=== PATIENT | male | born 1955 | race Caucasian/White ===

== ENCOUNTER 2018-02-25 08:15 | Emergency (ER) | payer OTHER, SELFPAY ==
[2018-02-25 08:16] VITALS: BP 128/77; PULSE 71; RESP 18; TEMP 37; O2SAT 97; BMI 24.3
--- NOTE | 2018-02-25 08:48 | RAD_ITS ---
STUDY: X-RAY - RIGHT HAND, ATTENTION . FINGER REASON FOR EXAM: Male, 62 years old. Crush injury. TECHNIQUE: 3 view(s) of the finger were obtained. COMPARISON: None. FINDINGS: Normal metacarpal head. Normal metacarpophalangeal joint. Normal proximal phalanx. Normal middle phalanx. Normal distal phalanx. Normal proximal interphalangeal joint. Normal distal interphalangeal joint. Soft tissue laceration overlying the distal phalanx of the index finger. A tiny radiopacity is seen within the soft tissues overlying the tuft of the distal pharynx. This most likely represents a tiny radiopaque foreign body. RAD/Finger(s) Min 2 Views IMPRESSION: Soft tissue laceration overlying the distal phalanx of the third digit with a tiny radiopaque foreign body. Electronically Signed: Leo Staples MD at 9:51 EST Tel [phone], Service support ,
--- NOTE | 2018-02-25 08:48 | RAD_ITS ---
STUDY: X-RAY - LEFT HAND, ATTENTION INDEX FINGER REASON FOR EXAM: Male, 62 years old. Crush injury to the index finger. TECHNIQUE: view(s) of the finger were obtained. COMPARISON: None. FINDINGS: Normal metacarpal head. Normal metacarpophalangeal joint. Normal proximal phalanx. Normal middle phalanx. Normal distal phalanx. Normal proximal interphalangeal joint. Findings suggest lobar degenerative spurring at the distal interphalangeal joint. Soft tissue laceration overlying the distal phalanx. RAD/Finger(s) Min 2 Views IMPRESSION: Soft tissue laceration overlying the distal phalanx. No radiopaque foreign body is seen. Electronically Signed: Leo Staples MD at 9:50 EST Tel [phone], Service support ,
[2018-02-25] MEDS: Diphth,Pertuss(Acell),Tet Vac 0.5 ML Vial IM (08:57)
[2018-02-25] MEDS: Bupivacaine Mpf 0.5% 30 ML VIAL INFILT (08:59)
--- NOTE | 2018-02-25 09:20 | ED.VISSUMM ---
- ER Visit Summary Date of Service: 02/25/18 Chief Complaint: Laceration History of Present Illness: The patient is a 62 M who reports that he was working with small piece of metal in a drill press. He brought depressed around and crushed his left index and right middle fingers. Reports his left index pain is 6 out of 10 severity. His right middle finger is 10 out of 10 in severity. Is worsened by movement. He describes the pain as throbbing. He is right-hand dominant. He is unsure when his last tetanus shot was. Physical Examination: Vitals: Stable. Afebrile. General: Well-nourished and well-developed. Head: Normocephalic atraumatic. Neck: Supple, no lymphadenopathy. No JVD. Nontender. Cardiovascular: Regular rate and rhythm. No murmurs. Respiratory: No respiratory distress. Clear to auscultation bilaterally. Abdominal: Soft, nontender, nondistended, normal bowel sounds. No guarding, rebound, or peritoneal signs. Back: Nontender. Extremities: Left index finger has a 2 cm flap laceration that is through the dermis and has connective tissue present underneath this. It does appear viable. Is not dusky. Right middle finger shows exposed connective tissue without exposed bone. There is no covering epidermis. The nail was avulsed.. Skin: Normal color, no rash. Neurologic: Alert and oriented ?3. Cranial nerves II through XII are intact. Normal strength and sensation. Psych: Normal affect. Test Results: Clinical Impression(s) from Imaging Studies Finger X-Ray 02/25/18 08:48 IMPRESSION: Soft tissue laceration overlying the distal phalanx of the third digit with a tiny radiopaque foreign body. Electronically Signed: Leo Staples MD at 9:51 EST Tel [phone], Service support , Finger X-Ray 02/25/18 08:48 IMPRESSION: Soft tissue laceration overlying the distal phalanx. No radiopaque foreign body is seen. Electronically Signed: Leo Staples MD at 9:50 EST Tel [phone], Service support , Emergency Department Course and Treatment: Patient had the wound on his left index finger repaired. He tolerated this well. He did have a digital block performed to each of the fingers that was involved. The right middle finger was cleansed and a small piece of metal was removed. It was copiously irrigated with normal saline. A dressing was then placed. Treatment Plan: Patient was discussed with Dr. Connor who has seen pictures of the wound and of the x-ray. He has the patient have a dressing placed and he will see him in the office in 3 days and discussed treatment options with him. Patient will be discharged on Keflex and given a first dose in the emergency department. He also be given Winton and naproxen for pain. Return to the emergency department for any worsening symptoms. Disposition: To home in improved and stable condition. Impression: 1. Laceration left index finger, 2 cm, repaired. 2. Partial amputation right middle fingertip. Procedure note: Wound was cleansed with chlorhexidine soap. Anesthetized with a digital block with bupivacaine without epinephrine. Copiously irrigated with normal saline. Wound was explored there is no foreign material present. It was closed with 5 simple interrupted 4-0 ethilon sutures. The patient tolerated it well. This note was generated with [employer] dictation software. It may contain incorrect words, spelling, and punctuation that were not noted in review of the chart prior to signing ED Disposition - Plan for ED Patient: Disposition: Home or Assisted Living Chief Complaint: Laceration Instructions: ED Laceration Amputation Finger Tip Open Tx Prescriptions: Hydrocodone Bitart/Apap 5-325 [Winton 5MG-325MG] 1 tablet PO Q4H PRN PRN 2 Days #10 tablet PRN Reason: Pain Cephalexin [Keflex] 500 mg PO Q6 #40 capsule Naproxen [Naprosyn] 500 mg PO BID #14 tablet Referrals: [facility] [GROUP OF PHYSICIANS] - Pepe Connor MD [STAFF PHYSICIAN] - 02/28/18
--- NOTE | 2018-02-25 09:27 | ED.DCSUM_ITS ---
- ER Visit Summary Date of Service: 02/25/18 Chief Complaint: Laceration History of Present Illness: The patient is a 62 M who reports that he was working with small piece of metal in a drill press. He brought depressed around and crushed his left index and right middle fingers. Reports his left index peter n is 6 out of 10 severity. His right middle finger is 10 out of 10 in severity. Is worsened by movement. He describes the pain as throbbing. He is right-hand dominant. He is unsure when his last tetanus shot was. Physical Examination: Vitals: Stable. Afebrile. General: Well-nourished and well-developed. Head: Normocephalic atraumatic. Neck: Supple, no lymphadenopathy. No JVD. Nontender. Cardiovascular: Regular rate and rhythm. No murmurs. Respiratory: No respiratory distress. Clear to auscultation bilaterally. Abdominal: Soft, nontender, nondistended, normal bowel sounds. No guarding, rebound, or peritoneal signs. Back: Nontender. Extremities: Left index finger has a 2 cm flap laceration that is through the dermis and has connective tissue present underneath this. It does appear viable. Is not dusky. Right middle finger shows exposed connective tissue without exposed bone. There is no covering epidermis. The nail was avulsed.. Skin: Normal color, no rash. Neurologic: Alert and oriented ?3. Cranial nerves II through XII are intact. Normal strength and sensation. Psych: Normal affect. Test Results: Clinical Impression(s) from Imaging Studies Finger X-Ray 02/25/18 08:48 IMPRESSION: Soft tissue laceration overlying the distal phalanx of the third digit with a tiny radiopaque foreign body. Electronically Signed: Leo Staples MD at 9:51 EST Tel [phone], Service support , Finger X-Ray 02/25/18 08:48 IMPRESSION: Soft tissue laceration overlying the distal phalanx. No radiopaque foreign body is seen. Electronically Signed: Leo Staples MD at 9:50 EST Tel [phone], Service support , Emergency Department Course and Treatment: Patient had the wound on his left index finger repaired. He tolerated this well. He did have a digital block performed to each of the fingers that was involved. The right middle finger was cleansed and a small piece of metal was removed. It was copiously irrigated with normal saline. A dressing was then placed. Treatment Plan: Patient was discussed with Dr. Connor who has seen pictures of the wound and of the x-ray. He has the patient have a dressing placed and he will see him in the office in 3 days and discussed treatment options with him. Patient will be discharged on Keflex and given a first dose in the emergency de partment. He also be given Wellborn and naproxen for pain. Return to the emergency department for any worsening symptoms. Disposition: To home in improved and stable condition. Impression: 1. Laceration left index finger, 2 cm, repaired. 2. Partial amputation right middle fingertip. Procedure note: Wound was cleansed with chlorhexidine soap. Anesthetized with a digital block with bupivacaine without epinephrine. Copiously irrigated with normal saline. Wound was explored there is no foreign material present. It was closed with 5 simple interrupted 4-0 ethilon sutures. The patient tolerated it well. This note was generated with [email or web address] dictation software. It may contain incorrect words, spelling, and punctuation that were not noted in review of the chart prior to signing ED Disposition - Plan for ED Patient: Disposition: Home or Assisted Living Chief Complaint: Laceration Instructions: ED Laceration Amputation Finger Tip Open Tx Prescriptions: Hydrocodone Bitart/Apap 5-325 [Wellborn 5MG-325MG] 1 tablet PO Q4H PRN PRN 2 Days #10 tablet PRN Reason: Pain Cephalexin [Keflex] 500 mg PO Q6 #40 capsule Naproxen [Naprosyn] 500 mg PO BID #14 tablet [facility]: [facility] [GROUP OF PHYSICIANS] - Pepe Connor MD [STAFF PHYSICIAN] - 02/28/18
[2018-02-25] MEDS: Cephalexin 500 MG Capsule PO (11:35)
== END 2018-02-25 11:38 | disposition home or self-care (01) ==
PROVIDERS: Emergency Provider Emergency Medicine
DX: S61.211A Laceration without foreign body of left index finger without damage to nail, initial encounter (principal); S68.122A Partial traumatic metacarpophalangeal amputation of right middle finger, initial encounter; W31.1XXA Contact with metalworking machines, initial encounter; Y93.89 Activity, other specified; Y99.0 Civilian activity done for income or pay; E11.9 Type 2 diabetes mellitus without complications; Z79.84 Long term (current) use of oral hypoglycemic drugs; Z79.899 Other long term (current) drug therapy
CPT/HCPCS: 12001; 73140; 90471; 90715; 99283

== ENCOUNTER → 2018-04-01 11:29 | Outpatient (CLI) | payer OTHER, SELFPAY ==
[2018-02-28 16:12] VITALS: BMI 24.8
[2018-04-01 12:31] LABS: Absolute Lymphocyte Count 1.31 X10^3/ul (0.83-4.51); Absolute Neutrophil Count 2.9 X10^3/uL (2.0-7.7); Basophil# 0.03 X10^3/uL; Basophil% 0.6 % (0-1); Eosinophil# 0.21 X10^3/uL; Eosinophils% 4.2 % (0-5); Hematocrit 39.1 % (40-54); Hemoglobin 13.2 g/dl (13.0-16.5); Lymphocyte # 1.31 X10^3/ul (4.0); Lymphocyte % 26.3 % (19-41); Mean Corp Hgb Conc 33.8 g/gl (32-36); Mean Corpuscular Hgb 30.7 pg (27.0-32.0); Mean Corpuscular Volume 90.9 fL (80-94); Mean Platelet Vol. 10.2 fl (6.2-12.0); Monocyte# 0.53 X10^3/uL; Monocyte% 10.6 % (0-10); Neutrophil % 58.3 % (47-70); Platelet Count 211 K/mm3 (150-450); RBC Distribution Width CV 11.5 % (11.6-14.6); RBC Distribution Width SD 37.8 fl (35.1-43.9)
[2018-04-01 12:48] LABS: POSITIVE COUNT NO; POSITIVE DIFFERENTIAL NO; POSITIVE MORPHOLOGY NO
[2018-04-01 14:04] LABS: BUN 20 mg/dL (7-18); Creatinine, Serum 0.97 mg/dL (0.70-1.30); Glucose 178 mg/dL (74-106)
[2018-04-01 14:05] LABS: ALB/GLOB Ratio 1.2 RATIO (0.9-2.4); AST(SGOT) 20 U/L (15-37); Alanine Aminotransfer ALT/SGPT 29 U/L (16-61); Albumin, Serum 3.7 g/dL (3.2-5.0); Alkaline Phosphatase 67 U/L (45-117); Anion Gap 9 (5-15); BUN/Creat Ratio 20.5 RATIO (10-20); Calcium,Total 8.4 mg/dL (8.5-10.1); Chloride 105 mmol/L (98-107); EST Glomerular Filtration Rate 83 mL/min (>60); Est Glom Filt Rate - Afr Amer 101 mL/min (>60); Globulin 3.2 g/dL (2.2-4.2); Potassium 3.9 mmol/L (3.5-5.1); Protein, Total 6.9 g/dL (6.4-8.2); Sodium Level 139 mmol/L (136-145); Thyroid Stim Hormone (TSH) 1.03 uIU/mL (0.358-3.74)
--- OUTSIDE RECORDS SUMMARY | 2018-05-18 04:52 | XMS RPT_ITS ---
:1955 Author Organization [place] Support Name Relationship Address Phone LYNETTE SHAUNA Unavailable [address] + [place] [address] [place] Unavailable [address] + [place] [address] LYNETTE SHAUNA Unavailable [address] + [place] [address] [place] Unavailable [address] + [place] [address] LYNETTE SHAUNA Unavailable [address] + [place] [address] [place] Unavailable [address] + [place] [address] LYNETTE, SHAUNA Unavailable [address] + [place] [address] [place] Unavailable [address] + [place] [address] LYNETTE SHAUNA Unavailable [address] + [place] [address] [place] Unavailable [address] + [place] [address] LYNETTE, SHAUNA Unavailable [address] + [place] [address] [place] Unavailable [address] + [place] [address] LYNETTE, SHAUNA Unavailable [address] + [place] [address] [place] Unavailable [address] + [place] [address] LYNETTE, SHAUNA Unavailable [address] + [place] [address] [place] Unavailable [address] + [place] [address] ADOLFO OJEDAIL Unavailable [address] + [place] [address] [place] Unavailable [address] + [place] [address] ADOLFO OJEDAIL Unavailable [address] + [place] [address] [place] Unavailable [address] + [place] [address] ADOLFO OJEDAIL Unavailable [address] + [place] [address] [place] Unavailable [address] + [place] [address] Care Team Providers Name Role Phone Tavia Cornelius Attending Unavailable Primay Care Physicia, No Referring Unavailable Darien, Vitaliy Chi Attending Unavailable Tavia Cornelius Attending Unavailable Primay Care Physicia, No Referring Unavailable Pepe Connor Attending Unavailable Primay Care Physicia, No Referring Unavailable Tavia Cornelius Attending Unavailable Primay Care Physicia, No Referring Unavailable Pepe Connor Attending Unavailable Primay Care Physicia, No Referring Unavailable Primay Care Physicia, No Primary Care Unavailable Alejandro Rehman Attending Unavailable Pepe Connor Attending Unavailable Primay Care Physicia, No Referring Unavailable Pepe Connor Attending Unavailable Primay Care Physicia, No Referring Unavailable SlabPepe moffett Attending Unavailable Primay Care Physicia, No Referring Unavailable SlabPepe moffett Attending Unavailable Primay Care Physicia, No Referring Unavailable PROBLEMS PROBLEMS DATE TYPE CONDITION / CODE ATTENDING STATUS SOURCE Unknown S61.322A - Laceration Pepe Connor Active [facility] with foreign body of Community right middle finger with Hospital damage to nail, initial Repository encounter / S61.322A(ICD-10) Unknown S61.211A - Laceration Pepe Connor Active [facility] without foreign body of Community left index finger Hospital without damage to nail, Repository initial encounter / S61.211A(ICD-10) Unknown S67.191A - Crushing Slaby, Pepe Active [place] 9 injury of left index Community finger, initial Hospital encounter / Repository S67.191A(ICD-10) Unknown S67.192A - Crushing Slaby, Pepe Active [place] 9 injury of right middle Community finger, initial Hospital encounter / Repository S67.192A(ICD-10) Unknown S68.622A - Partial Slaby, Pepe Active [place] [facility] traumatic [facility] transphalangeal [facility] amputation of right Repository middle finger, initial encounter / S68.622A(ICD-10) Unknown S61.302A - Unspecified Slaby, Pepe Active [place] 8 open wound of right Community middle finger with Hospital damage to nail, initial Repository encounter / S61.302A(ICD-10) Unknown S68.122A - Partial Slaby, Pepe Active [place] 8 traumatic [facility] metacarpophalangeal [facility] amputation of right Repository middle finger, initial encounter / S68.122A(ICD-10) PROCEDURES PROCEDURES No Procedure Records FoundRESULTS RESULTS PLASTIC SURGERY Observed: 04/22/2018 Status: F Source: SEVERY VISIT REPORT 11:44 AM [facility] REPOSITORY [facility] Plastic AND Reconstructive Surgery [address] [facility] [address] [place] [address] OFFICE VISIT Date of Service: 04/21/18 MR#: [id number] Acct: [id number] Name: ROSE HERNANDEZ Rep #: [id number] : 1955 Provider: Pepe Connor MD Age/Sex: 62/M Location: [facility] Status: Signed Intake Vital Signs04/21/18 Blood Pressure 114/69 04/21/18 Blood Pressure Location Lt brachial 04/21/18 Blood Pressure Position Sitting 04/21/18 Pulse Rate 82 04/21/18 Temperature 97.9 F Intake Visit Reasons: evaluation crush injury right long finger with tip amputation Allergies No Known Allergies Allergy (Verified 04/06/18 08:45) Medications Atorvastatin Calcium [Lipitor] 40 mg PO QHS 02/25/18 [History Confirmed 03/23/18] Cephalexin [Keflex] 500 mg PO Q6 #40 cap 02/25/18 [Rx Confirmed 03/23/18] Metformin HCl [Glucophage] 500 mg PO BIDCM 02/25/18 [History Confirmed 03/23/18] Naproxen [Naprosyn] 500 mg PO BID #14 tab 02/25/18 [Rx Confirmed 03/23/18] Pioglitazone [Actos] 30 mg PO DAILY 02/25/18 [History Confirmed 03/23/18] doxycycline hyclate 100 mg capsule 100 mg PO BID #42 cap 03/12/18 [Rx Confirmed 03/23/18] PFSH Medical History Diabetes (Acute) Neuropathy (Acute) Surgical History History of cholecystectomy (Acute) Family History Unknown No problems noted. Social History Smoking Status: Never smoker alcohol intake: current substance use type: does not use additional social history: DOES NOT USE ASPIRIN DOES NOT USE IBUPROFEN HPI evaluation crush injury right long finger with tip amputation: Details: HISTORY OF PRESENT ILLNESS 62 year old man presents with a crush injury to his right long finger when he was working with a piece of metal in a drill press. In addition to a crush injury to his right long finger, his left index finger was also caught in the press as well. The injury occurred on 02/25/18. Patient is right hand dominant. He went to the ED, and xray right long finger showed no fracture and the presence of a tiny radiopaque foreign body. Xray left index finger showed no fracture and no radiopaque foreign body seen. He sustained a laceration to his left index finger on the distal volar area that was cleansed and suture repaired. He sustained a tip amputation right long finger with soft tissue exposed. No bone was exposed. The distal half of the nail bed was involved with the amputation. The nail plate was not present initially. The wound was cleansed and the tiny foreign body removed and wrapped with xeroform gauze. He was placed on Keflex and Keene and discharged. He presented to my office on for further evaluation. The wound was clean and he was started on antibiotic ointment daily. He continued at work. I recommended not being involved with machinery while at work and having a 20 lb lifting restriction. He states he is doing ok at work. He finished the Keflex and was started on Doxycycline and is finishing them. He presents today for further evaluation and treatment. REVIEW OF SYSTEMS General - Denies fever, fatigue, and weight loss. Eyes - Denies cataracts and glaucoma. ENT - Denies nasal congestion and sore throat. Endocrine - Denies excessive thirst and urination. Has diabetes mellitus. Skin - Denies suspicious lesions and skin cancer. Has laceration repair left index finger. Has tip amputation right long finger with soft tissue exposed and no bone exposed and involving the nail. Musculoskeletal - Denies joint pain, joint stiffness, weakness of muscles and joints, back pain, and arthritis. Has tip amputation right long finger with soft tissue exposed and no bone exposed and involving the nail. Neuro - Denies headaches. Cardiovascular - Denies chest pain, fatigue, and shortness of breath with exertion. Psych - Denies anxiety and depression. Respiratory - Denies chronic cough and shortness of breath. Gastrointestinal - Denies nausea, vomiting, diarrhea, and constipation. Hematologic - Denies abnormal bruising and bleeding. Genitourinary - Denies hematuria and urinary frequency. PHYSICAL EXAMINATION General - Alert and Oriented HEENT - PERRL. EOMI. Throat is clear. Neck - Supple and nontender. No cervical adenopathy. Lungs - Clear to auscultation. Heart - Regular rate and rhythm. Abdomen - Soft and nondistended. Extremities - FROM. Flexion involving the DIP and PIP joints of the right long finger and left index finger intact. Has soft tissue loss right long fingertip. Measures smaller at 0.6 x 0.5 cm The volar side of the finger has healed. The ulnar side of the finger has healed. The wound now involves mainly the dorsal side of the finger. No bone exposed. Distal half of the nail bed has been amputated. Some proximal nail growth is seen. Has paresthesias at the right long finger tip. Proximally there is painful burning from the crush injury that is slowly improving. The wound is clean without evidence of infection. Mild swelling present. He has good range of motion of his fingers right hand and can make a fist. He has good brain surgeon strength. On the left index finger distal volar aspect is a suture repaired laceration. Incision is dry and intact and healing. Fingers are warm with good capillary refill except for the right long finger because the tip has been amputated. No axillary adenopathy. Radial pulses are palpable. Neuro - CN II-XII grossly intact. Psych - Normal mood and affect. ASSESSMENT 1. Partial amputation right long fingertip involving the nail with improving 0.6 cm soft tissue wound and without bone exposure, healing. 2. 2 cm laceration distal volar aspect left index finger, healed. 3. 2.5 cm open wound right long fingertip with damage to nail, healing. 4. Crush injury right long finger and left index finger. PLAN DEBRIDEMENT NOTE After using Cetacaine spray anesthesia, I used a #3 curette and sharply debrided the wound down to the subcutaneous tissue as an excisional debridement. Good bleeding was seen in the subcutaneous tissue after the excisional debridement. In addition to the subcutaneous tissue, I also debrided some senescent cells, some increased bioburden, and some devitalized tissue. Patient tolerated the procedure reasonably well. Some discomfort was noted. Hemostasis was obtained with gentle pressure. The wound was redressed with antibiotic ointment. The dimensions of the wound increased after excisional debridement to 0.6 x 0.7 cm. He finished the Keflex antibiotics and is now on Doxycycline because of risk of osteomyelitis from the crush injury. He is finishing that script. Discussed with him treatment options. These include continued wound care with antibiotic ointment until healed or operative debridement and skin grafting or operative debridement and complex 2 stage reconstruction with a thenar flap. The second stage would be in 3 weeks which is division and inset of the flap. The last resort option is revision amputation. The patient doesn't want the complex flap at this time since he is back to work and doesn't want two procedures at this time. As long as the wound cooperates, continuing local wound care should heal about the same time as a skin graft. He is interested in proceeding with local wound care with antibiotic ointment daily. He is aware that he is at risk of chronic pain in the finger and osteomyelitis and stiffness and neuroma secondary to the crushing injury that may need surgical intervention in the future Will monitor his wound closely and see him on a weekly basis until healed because of his diabetes mellitus that increases the risk of wound healing issues and infection. If suboptimal healing is seen or if infection develops, then operative debridement would be necessary. In this situation, we may be able to salvage the finger tip with a two stage thenar flap but may need a revision amputation depending on the extent of the operative debridement. He is doing ok at work as the 20 lb lifting restriction has been helpful. The main restriction is he cannot be around moving or motorized machinery. He states there are other things he can do while at work. He was also advised during his breaks to go to the bathroom and cleanse the right long fingertip wound and reapply antibiotic ointment and wrap with gauze. When at home he can dress with a band-aid. He has good range of motion on right hand. The abrasion laceration left index finger has healed. Massage the incision with skin lotion daily to help soften up the scar. With the crushing injury he is having some burning nerve pain. He states it has improved with the Neurontin. He uses Neurontin mostly at night. Continue Doxycycline until finished and then stop for a few days. As long as the wound continues to heal at that point, can then stay off the antibiotics. If there are wound healing issues at that time, will restart the antibiotics. Followup one week. Assessment AND Plan Problems 1. Laceration of right middle finger with foreign body and damage to nail S61.322A 2. Laceration of left index finger without foreign body without damage to nail S61.211A 3. Crushing injury of left index finger S67.191A 4. Crushing injury of right middle finger S67.192A Coding Level of Care Code Off vis,est,level 4 Diagnoses Laceration of right middle finger with foreign body and damage to nail S61.322A Laceration of left index finger without foreign body without damage to nail S61.211A Crushing injury of left index finger S67.191A Crushing injury of right middle finger S67.192A 04/22/18 1110 <Electronically signed by Pepe Connor MD> Date Pepe Connor MD 04/22/18 1144<Electronically signed by Tavia LUCERO> Cosigner Signature: Date (if applicable) Tavia Cornelius CC: PLASTIC SURGERY Observed: 04/12/2018 Status: F Source: SEVERY VISIT REPORT 7:42 PM [facility] REPOSITORY [facility] Plastic AND Reconstructive Surgery [address] [facility] [address] [place] [address] OFFICE VISIT Date of Service: 04/06/18 MR#: [id number] Acct: [id number] Name: ROSE HERNANDEZ Rep #: [id number] : 1955 Provider: JAZMINE Cornelius Age/Sex: 62/M Location: [facility] Status: Signed Intake Vital Signs04/06/18 Blood Pressure 130/79 H H 04/06/18 Blood Pressure Location Lt brachial 04/06/18 Blood Pressure Position Sitting 04/06/18 Respiratory Rate 14 Intake Visit Reasons: evaluation cursh injury right long finger with tip amputation Early Childhood Services Coordinator Required: No Accompanied by: None Is patient in pain?: Yes (RIGHT HAND MIDDLE FINGER PAIN SHARP AND STABBING LIKE NEEDLES ) Pain scale (1-10): 3 Allergies No Known Allergies Allergy (Verified 04/06/18 08:45) Medications Atorvastatin Calcium [Lipitor] 40 mg PO QHS 02/25/18 [History Confirmed 03/23/18] Cephalexin [Keflex] 500 mg PO Q6 #40 cap 02/25/18 [Rx Confirmed 03/23/18] Metformin HCl [Glucophage] 500 mg PO BIDCM 02/25/18 [History Confirmed 03/23/18] Naproxen [Naprosyn] 500 mg PO BID #14 tab 02/25/18 [Rx Confirmed 03/23/18] Pioglitazone [Actos] 30 mg PO DAILY 02/25/18 [History Confirmed 03/23/18] doxycycline hyclate 100 mg capsule 100 mg PO BID #42 cap 03/12/18 [Rx Confirmed 03/23/18] oxycodone-acetaminophen 5 mg-325 mg tablet 1 tab PO 4X/DAY PRN #30 tab 04/06/18 [Rx Confirmed 04/06/18] Nurse's Note: PFSH Medical History Diabetes (Acute) Neuropathy (Acute) Surgical History History of cholecystectomy (Acute) Family History Unknown No problems noted. Social History Smoking Status: Never smoker alcohol intake: current substance use type: does not use additional social history: DOES NOT USE ASPIRIN DOES NOT USE IBUPROFEN HPI evaluation cursh injury right long finger with tip amputation: Details: HISTORY OF PRESENT ILLNESS 62 year old man presents with a crush injury to his right long finger when he was working with a piece of metal in a drill press. In addition to a crush injury to his right long finger, his left index finger was also caught in the press as well. The injury occurred on 02/25/18. Patient is right hand dominant. He went to the ED, and xray right long finger showed no fracture and the presence of a tiny radiopaque foreign body. Xray left index finger showed no fracture and no radiopaque foreign body seen. He sustained a laceration to his left index finger on the distal volar area that was cleansed and suture repaired. He sustained a tip amputation right long finger with soft tissue exposed. No bone was exposed. The distal half of the nail bed was involved with the amputation. The nail plate was not present initially. The wound was cleansed and the tiny foreign body removed and wrapped with xeroform gauze. He was placed on Keflex and Keene and discharged. He presented to my office on for further evaluation. The wound was clean and he was started on antibiotic ointment daily. He continued at work. I recommended not being involved with machinery while at work and having a 20 lb lifting restriction. He states he is doing ok at work. He finished the Keflex and was started on Doxycycline. He presents today for further evaluation and treatment. REVIEW OF SYSTEMS General - Denies fever, fatigue, and weight loss. Eyes - Denies cataracts and glaucoma. ENT - Denies nasal congestion and sore throat. Endocrine - Denies excessive thirst and urination. Has diabetes mellitus. Skin - Denies suspicious lesions and skin cancer. Has laceration repair left index finger. Has tip amputation right long finger with soft tissue exposed and no bone exposed and involving the nail. Musculoskeletal - Denies joint pain, joint stiffness, weakness of muscles and joints, back pain, and arthritis. Has tip amputation right long finger with soft tissue exposed and no bone exposed and involving the nail. Neuro - Denies headaches. Cardiovascular - Denies chest pain, fatigue, and shortness of breath with exertion. Psych - Denies anxiety and depression. Respiratory - Denies chronic cough and shortness of breath. Gastrointestinal - Denies nausea, vomiting, diarrhea, and constipation. Hematologic - Denies abnormal bruising and bleeding. Genitourinary - Denies hematuria and urinary frequency. PHYSICAL EXAMINATION General - Alert and Oriented HEENT - PERRL. EOMI. Throat is clear. Neck - Supple and nontender. No cervical adenopathy. Lungs - Clear to auscultation. Heart - Regular rate and rhythm. Abdomen - Soft and nondistended. Extremities - FROM. Flexion involving the DIP and PIP joints of the right long finger and left index finger intact. Has soft tissue loss right long fingertip. Measures smaller at 0.8 cm and involves both the volar and dorsal side of the finger. No bone exposed. Distal half of the nail bed has been amputated. Some proximal nail growth is seen. Has paresthesias at the right long finger tip. Proximally there is painful burning from the crush injury. The wound is clean without evidence of infection. Mild swelling present. He has good range of motion of his fingers right hand and can make a fist. He has good brain surgeon strength. On the left index finger distal volar aspect is a suture repaired laceration. Incision is dry and intact and healing. Fingers are warm with good capillary refill except for the right long finger because the tip has been amputated. No axillary adenopathy. Radial pulses are palpable. Neuro - CN II-XII grossly intact. Psych - Normal mood and affect. ASSESSMENT 1. Partial amputation right long fingertip involving the nail with improving 0.8 cm soft tissue wound and without bone exposure, healing. 2. 2 cm laceration distal volar aspect left index finger, healed. 3. 2.5 cm open wound right long fingertip with damage to nail, healing. 4. Crush injury right long finger and left index finger. PLAN DEBRIDEMENT NOTE After using cetacaine spray anesthesia, I used a #3 curette and sharply debrided the wound down to the subcutaneous tissue as an excisional debridement. Good bleeding was seen in the subcutaneous tissue after the excisional debridement. In addition to the subcutaneous tissue, I also debrided some senescent cells, some increased bioburden, and some devitalized tissue. Patient tolerated the procedure reasonably well. Some discomfort was noted. Hemostasis was obtained with gentle pressure. The wound was redressed with antibiotic ointment. The dimensions of the wound increased after excisional debridement to 0.9 cm. He finished the Keflex antibiotics and is now on Doxycycline because of risk of osteomyelitis from the crush injury. Discussed with him treatment options. These include continued wound care with antibiotic ointment until healed or operative debridement and skin grafting or operative debridement and complex 2 stage reconstruction with a thenar flap. The second stage would be in 3 weeks which is division and inset of the flap. The last resort option is revision amputation. The patient doesn't want the complex flap at this time since he is back to work and doesn't want two procedures at this time. As long as the wound cooperates, continuing local wound care should heal about the same time as a skin graft. He is interested in proceeding with local wound care with antibiotic ointment daily. He is aware that he is at risk of chronic pain in the finger and osteomyelitis and stiffness and neuroma secondary to the crushing injury that may need surgical intervention in the future Will monitor his wound closely and see him on a weekly basis until healed because of his diabetes mellitus that increases the risk of wound healing issues and infection. That is why I will keep him on antibiotics until healed. If suboptimal healing is seen or if infection develops, then operative debridement would be necessary. In this situation, we may be able to salvage the finger tip with a two stage thenar flap but may need a revision amputation depending on the extent of the operative debridement. He is doing ok at work as the 20 lb lifting restriction has been helpful. The main restriction is he cannot be around moving or motorized machinery. He states there are other things he can do while at work. He was also advised during his breaks to go to the bathroom and cleanse the right long fingertip wound and reapply antibiotic ointment and wrap with gauze. When at home he can dress with a band-aid. He has good range of motion on right hand. The abrasion laceration left index finger has healed. Massage the incision with skin lotion daily to help soften up the scar. With the crushing injury he is having some burning nerve pain. He states it has improved with the Neurontin. He uses Neurontin mostly at night. Continue Doxycycline. Renewed Percocet (30 tabs) for severe pain and was instructed not to take the pain medication while at work. He voiced understanding. Followup one week. Assessment AND Plan Problems 1. Laceration of right middle finger with foreign body and damage to nail S61.322A 2. Laceration of left index finger without foreign body without damage to nail S61.211A 3. Crushing injury of left index finger S67.191A 4. Crushing injury of right middle finger S67.192A Medications New: oxycodone-acetaminophen 5-325 1 tab PO 4X/DAY PRN 30 tabs 0S61.211A, S61.322A, S67.191A, mg (Percocet) 30 tabs (thirRF pain S67.192A ty) Coding Level of Care Code Off vis,est,level 4 Diagnoses Laceration of right middle finger with foreign body and damage to nail S61.322A Laceration of left index finger without foreign body without damage to nail S61.211A Crushing injury of left index finger S67.191A Crushing injury of right middle finger S67.192A 04/12/181941 <Electronically signed by Tavia LUCERO> Date Tavia LUCERO 04/11/18 0018<Electronically signed by Pepe Connor MD> Cosigner Signature: Date (if applicable) Pepe Connor MD CC: PLASTIC SURGERY Observed: 04/08/2018 Status: F Source: SEVERY VISIT REPORT 1:14 PM [facility] REPOSITORY [facility] Plastic AND Reconstructive Surgery [address] [place] [address] OFFICE VISIT Date of Service: 03/30/18 MR#: [id number] Acct: [id number] Name: ROSE HERNANDEZ Rep #: [id number] : 1955 Provider: JAZMINE Cornelius Age/Sex: 62/M Location: [facility] Status: Signed Intake Vital Signs03/30/18 Blood Pressure 122/81 H H 03/30/18 Blood Pressure Location Lt brachial 03/30/18 Blood Pressure Position Sitting 03/30/18 Respiratory Rate 14 Intake Visit Reasons: evaluation crush injury right long finger with tip amputation Early Childhood Services Coordinator Required: No Accompanied by: None Is patient in pain?: Yes (RIGHT LONG FINGER PAIN BURNING AND SOMETIMES SHARP) Pain scale (1-10): 4 Allergies No Known Allergies Allergy (Verified 04/06/18 08:45) Medications Atorvastatin Calcium [Lipitor] 40 mg PO QHS 02/25/18 [History Confirmed 03/23/18] Cephalexin [Keflex] 500 mg PO Q6 #40 cap 02/25/18 [Rx Confirmed 03/23/18] Metformin HCl [Glucophage] 500 mg PO BIDCM 02/25/18 [History Confirmed 03/23/18] Naproxen [Naprosyn] 500 mg PO BID #14 tab 02/25/18 [Rx Confirmed 03/23/18] Pioglitazone [Actos] 30 mg PO DAILY 02/25/18 [History Confirmed 03/23/18] doxycycline hyclate 100 mg capsule 100 mg PO BID #42 cap 03/12/18 [Rx Confirmed 03/23/18] oxycodone-acetaminophen 5 mg-325 mg tablet 1 tab PO 4X/DAY PRN #30 tab 04/06/18 [Rx Confirmed 04/06/18] PFSH Medical History Diabetes (Acute) Neuropathy (Acute) Surgical History History of cholecystectomy (Acute) Family History Unknown No problems noted. Social History Smoking Status: Never smoker alcohol intake: current substance use type: does not use additional social history: DOES NOT USE ASPIRIN DOES NOT USE IBUPROFEN HPI evaluation crush injury right long finger with tip amputation: Details: HISTORY OF PRESENT ILLNESS 62 year old man presents with a crush injury to his right long finger when he was working with a piece of metal in a drill press. In addition to a crush injury to his right long finger, his left index finger was also caught in the press as well. The injury occurred on 02/25/18. Patient is right hand dominant. He went to the ED, and xray right long finger showed no fracture and the presence of a tiny radiopaque foreign body. Xray left index finger showed no fracture and no radiopaque foreign body seen. He sustained a laceration to his left index finger on the distal volar area that was cleansed and suture repaired. He sustained a tip amputation right long finger with soft tissue exposed. No bone was exposed. The distal half of the nail bed was involved with the amputation. The nail plate is not present. The wound was cleansed and the tiny foreign body removed and wrapped with xeroform gauze. He was placed on Keflex and Keene and discharged. He presented to my office on for further evaluation. The wound was clean and he was started on antibiotic ointment daily. He continued at work. I recommended not being involved with machinery while at work and having a 20 lb lifting restriction. He states he is doing ok at work. He finished the Keflex and was started on Doxycycline. He presents today for further evaluation and treatment. REVIEW OF SYSTEMS General - Denies fever, fatigue, and weight loss. Eyes - Denies cataracts and glaucoma. ENT - Denies nasal congestion and sore throat. Endocrine - Denies excessive thirst and urination. Has diabetes mellitus. Skin - Denies suspicious lesions and skin cancer. Has laceration repair left index finger. Has tip amputation right long finger with soft tissue exposed and no bone exposed and involving the nail. Musculoskeletal - Denies joint pain, joint stiffness, weakness of muscles and joints, back pain, and arthritis. Has tip amputation right long finger with soft tissue exposed and no bone exposed and involving the nail. Neuro - Denies headaches. Cardiovascular - Denies chest pain, fatigue, and shortness of breath with exertion. Psych - Denies anxiety and depression. Respiratory - Denies chronic cough and shortness of breath. Gastrointestinal - Denies nausea, vomiting, diarrhea, and constipation. Hematologic - Denies abnormal bruising and bleeding. Genitourinary - Denies hematuria and urinary frequency. PHYSICAL EXAMINATION General - Alert and Oriented HEENT - PERRL. EOMI. Throat is clear. Neck - Supple and nontender. No cervical adenopathy. Lungs - Clear to auscultation. Heart - Regular rate and rhythm. Abdomen - Soft and nondistended. Extremities - FROM. Flexion involving the DIP and PIP joints of the right long finger and left index finger intact. Has soft tissue loss right long fingertip. Measures smaller at 1 cm and involves both the volar and dorsal side of the finger. No bone exposed. Distal half of the nail bed has been amputated. Some proximal nail growth is seen. Has paresthesias at the right long finger tip. Proximally there is painful burning from the crush injury. The wound is clean without evidence of infection. Mild swelling present. He has good range of motion of his fingers right hand and can make a fist. He has good brain surgeon strength. On the left index finger distal volar aspect is a suture repaired laceration. Incision is dry and intact and healing. Fingers are warm with good capillary refill except for the right long finger because the tip has been amputated. No axillary adenopathy. Radial pulses are palpable. Neuro - CN II-XII grossly intact. Psych - Normal mood and affect. ASSESSMENT 1. Partial amputation right long fingertip involving the nail with improving 1 cm soft tissue wound and without bone exposure, healing. 2. 2 cm laceration distal volar aspect left index finger, healed. 3. 2.5 cm open wound right long fingertip with damage to nail, healing. 4. Crush injury right long finger and left index finger. PLAN DEBRIDEMENT NOTE After using cetacaine spray anesthesia, I used a #3 curette and sharply debrided the wound down to the subcutaneous tissue as an excisional debridement. Good bleeding was seen in the subcutaneous tissue after the excisional debridement. In addition to the subcutaneous tissue, I also debrided some senescent cells, some increased bioburden, and some devitalized tissue. Patient tolerated the procedure reasonably well. Some discomfort was noted. Hemostasis was obtained with gentle pressure. The wound was redressed with antibiotic ointment. The dimensions of the wound increased after excisional debridement to 1.1 cm. He finished the Keflex antibiotics and is now on Doxycycline because of risk of osteomyelitis from the crush injury. Discussed with him treatment options. These include continued wound care with antibiotic ointment until healed or operative debridement and skin grafting or operative debridement and complex 2 stage reconstruction with a thenar flap. The second stage would be in 3 weeks which is division and inset of the flap. The last resort option is revision amputation. The patient doesn't want the complex flap at this time since he is back to work and doesn't want two procedures at this time. As long as the wound cooperates, continuing local wound care should heal about the same time as a skin graft. He is interested in proceeding with local wound care with antibiotic ointment daily. He is aware that he is at risk of chronic pain in the finger and osteomyelitis and stiffness and neuroma secondary to the crushing injury that may need surgical intervention in the future Will monitor his wound closely and see him on a weekly basis until healed because of his diabetes mellitus that increases the risk of wound healing issues and infection. That is why I will keep him on antibiotics until healed. If suboptimal healing is seen or if infection develops, then operative debridement would be necessary. In this situation, we may be able to salvage the finger tip with a two stage thenar flap but may need a revision amputation depending on the extent of the operative debridement. He is doing ok at work as the 20 lb lifting restriction has been helpful. The main restriction is he cannot be around moving or motorized machinery. He states there are other things he can do while at work. He was also advised during his breaks to go to the bathroom and cleanse the right long fingertip wound and reapply antibiotic ointment and wrap with gauze. When at home he can dress with a band-aid. He has good range of motion on right hand. The abrasion laceration left index finger has healed. Massage the incision with skin lotion daily to help soften up the scar. With the crushing injury he is having some burning nerve pain. He states it has improved with the Neurontin. He uses Neurontin mostly at night. Continue Doxycycline. Renewed Percocet (30 tabs) for severe pain and was instructed not to take the pain medication while at work. He voiced understanding. Followup one week. Assessment AND Plan Problems 1. Laceration of right middle finger with foreign body and damage to nail S61.322A 2. Laceration of left index finger without foreign body without damage to nail S61.211A 3. Crushing injury of left index finger S67.191A 4. Crushing injury of right middle finger S67.192A Medications Discontinued: oxycodone-acetaminophen 5-325 1 tab PO 4X/DAY PRN 30 tabs 0S61.211A, S61.322A, S67.191A, mg (Percocet) 30 tabs (thirRF pain S67.192A ty) Discontinued Reason: B y Stop Date Coding Level of Care Code Off vis,est,level 4 Diagnoses Laceration of right middle finger with foreign body and damage to nail S61.322A Laceration of left index finger without foreign body without damage to nail S61.211A Crushing injury of left index finger S67.191A Crushing injury of right middle finger S67.192A 04/08/18 1314 <Electronically signed by Tavia Cornelius PROGRAM MANAGEMENT INTERN-C> Date Tavia Cornelius PROGRAM MANAGEMENT INTERN-C 04/02/18 1255<Electronically signed by Pepe Connor MD> Cosigner Signature: Date (if applicable) Pepe Connor MD CC: PLASTIC SURGERY Observed: 04/01/2018 Status: F Source: SEVERY VISIT REPORT 6:01 PM [facility] REPOSITORY [facility] [address] [place] [address] OFFICE VISIT Date of Service: 03/23/18 MR#: [id number] Acct: [id number] Name: ROSE HERNANDEZ Rep #: [id number] : 1955 Provider: Pepe Connor MD Age/Sex: 62/M Location: [facility] Status: Signed Intake Vital Signs03/23/18 Blood Pressure 134/78 H H 03/23/18 Blood Pressure Location Lt brachial 03/23/18 Blood Pressure Position Sitting 03/23/18 Respiratory Rate 14 Intake Visit Reasons: evaluation crush injury right long finger with tip amputation Early Childhood Services Coordinator Required: No Accompanied by: None Is patient in pain?: Yes (RIGHT HAND MIDDLE FINGER PAIN BURNING DEEP ACHING AND RADIATING ) Pain scale (1-10): 6 Allergies No Known Allergies Allergy (Verified 03/30/18 09:02) Medications Atorvastatin Calcium [Lipitor] 40 mg PO QHS 02/25/18 [History Confirmed 03/23/18] Cephalexin [Keflex] 500 mg PO Q6 #40 cap 02/25/18 [Rx Confirmed 03/23/18] Metformin HCl [Glucophage] 500 mg PO BIDCM 02/25/18 [History Confirmed 03/23/18] Naproxen [Naprosyn] 500 mg PO BID #14 tab 02/25/18 [Rx Confirmed 03/23/18] Pioglitazone [Actos] 30 mg PO DAILY 02/25/18 [History Confirmed 03/23/18] doxycycline hyclate 100 mg capsule 100 mg PO BID #42 cap 03/12/18 [Rx Confirmed 03/23/18] oxycodone-acetaminophen 5 mg-325 mg tablet 1 tab PO 4X/DAY PRN #30 tab 03/30/18 [Rx Confirmed 03/30/18] PFSH Medical History Diabetes (Acute) Neuropathy (Acute) Surgical History History of cholecystectomy (Acute) Family History Unknown No problems noted. Social History Smoking Status: Never smoker alcohol intake: current substance use type: does not use additional social history: DOES NOT USE ASPIRIN DOES NOT USE IBUPROFEN HPI evaluation crush injury right long finger with tip amputation: Details: HISTORY OF PRESENT ILLNESS 62 year old man presents with a crush injury to his right long finger when he was working with a piece of metal in a drill press. In addition to a crush injury to his right long finger, his left index finger was also caught in the press as well. The injury occurred on 02/25/18. Patient is right hand dominant. He went to the ED, and xray right long finger showed no fracture and the presence of a tiny radiopaque foreign body. Xray left index finger showed no fracture and no radiopaque foreign body seen. He sustained a laceration to his left index finger on the distal volar area that was cleansed and suture repaired. He sustained a tip amputation right long finger with soft tissue exposed. No bone was exposed. The distal half of the nail bed was involved with the amputation. The nail plate is not present. The wound was cleansed and the tiny foreign body removed and wrapped with xeroform gauze. He was placed on Keflex and Keene and discharged. He presented to my office on for further evaluation. The wound was clean and he was started on antibiotic ointment daily. He continued at work. I recommended not being involved with machinery while at work. He states he is doing ok at work. He finished the Keflex and was started on Doxycycline. He presents today for further evaluation and treatment. REVIEW OF SYSTEMS General - Denies fever, fatigue, and weight loss. Eyes - Denies cataracts and glaucoma. ENT - Denies nasal congestion and sore throat. Endocrine - Denies excessive thirst and urination. Has diabetes mellitus. Skin - Denies suspicious lesions and skin cancer. Has laceration repair left index finger. Has tip amputation right long finger with soft tissue exposed and no bone exposed and involving the nail. Musculoskeletal - Denies joint pain, joint stiffness, weakness of muscles and joints, back pain, and arthritis. Has tip amputation right long finger with soft tissue exposed and no bone exposed and involving the nail. Neuro - Denies headaches. Cardiovascular - Denies chest pain, fatigue, and shortness of breath with exertion. Psych - Denies anxiety and depression. Respiratory - Denies chronic cough and shortness of breath. Gastrointestinal - Denies nausea, vomiting, diarrhea, and constipation. Hematologic - Denies abnormal bruising and bleeding. Genitourinary - Denies hematuria and urinary frequency. PHYSICAL EXAMINATION General - Alert and Oriented HEENT - PERRL. EOMI. Throat is clear. Neck - Supple and nontender. No cervical adenopathy. Lungs - Clear to auscultation. Heart - Regular rate and rhythm. Abdomen - Soft and nondistended. Extremities - FROM. Flexion involving the DIP and PIP joints of the right long finger and left index finger intact. Has soft tissue loss right long fingertip. Measures smaller at 1.8 cm and involves both the volar and dorsal side of the finger. No bone exposed. Distal half of the nail bed has been amputated. The nail plate is not present. Has paresthesias at the right long finger tip. Proximally there is painful burning from the crush injury. The wound is clean without evidence of infection. Mild swelling present. He has good range of motion of his fingers right hand and can make a fist. He has good brain surgeon strength. On the left index finger distal volar aspect is a suture repaired laceration. Measures 2 cm. Incision is dry and intact and healing. Fingers are warm with good capillary refill except for the right long finger because the tip has been amputated. No axillary adenopathy. Radial pulses are palpable. Neuro - CN II-XII grossly intact. Psych - Normal mood and affect. ASSESSMENT 1. Partial amputation right long fingertip involving the nail with 1.8 cm soft tissue wound and without bone exposure, slowly healing. 2. 2 cm laceration distal volar aspect left index finger with small 2 mm abrasion, healing. 3. 2.5 cm open wound right long fingertip with damage to nail, slowly healing. 4. Crush injury right long finger and left index finger. PLAN DEBRIDEMENT NOTE After using cetacaine spray anesthesia, I used a #3 curette and sharply debrided the wound down to the subcutaneous tissue as an excisional debridement. Good bleeding was seen in the subcutaneous tissue after the excisional debridement. In addition to the subcutaneous tissue, I also debrided some senescent cells, some increased bioburden, and some devitalized tissue. Patient tolerated the procedure reasonably well. Some discomfort was noted. Hemostasis was obtained with gentle pressure. The wound was redressed with antibiotic ointment. The dimensions of the wound increased after excisional debridement to 1.9 cm. He finished the Keflex antibiotics and is now on Doxycycline because of risk of osteomyelitis from the crush injury. Discussed with him treatment options. These include continued wound care with antibiotic ointment until healed or operative debridement and skin grafting or operative debridement and complex 2 stage reconstruction with a thenar flap. The second stage would be in 3 weeks which is division and inset of the flap. The last resort option is revision amputation. The patient doesn't want the complex flap at this time since he is back to work and doesn't want two procedures at this time. As long as the wound cooperates, continuing local wound care should heal about the same time as a skin graft. He is interested in proceeding with local wound care with antibiotic ointment daily. He is aware that he is at risk of chronic pain in the finger and osteomyelitis and stiffness and neuroma secondary to the crushing injury that may need surgical intervention in the future Will monitor his wound closely and see him on a weekly basis until healed because of his diabetes mellitus that increases the risk of wound healing issues and infection. That is why I will keep him on antibiotics until healed. If suboptimal healing is seen or if infection develops, then operative debridement would be necessary. In this situation, we may be able to salvage the finger tip with a two stage thenar flap but may need a revision amputation depending on the extent of the operative debridement. He is doing ok at work as the 20 lb lifting restriction has been helpful. The main restriction is he cannot be around moving or motorized machinery. He states there are other things he can do while at work. He was also advised during his breaks to go to the bathroom and cleanse the right long fingertip wound and reapply antibiotic ointment and wrap with gauze. When at home he can dress with a band-aid. He has good range of motion on right hand. Sutures removed from left index finger today. There is a 2 mm abrasion on left index finger. He will continue antibiotic ointment daily on left index finger. With the crushing injury he is having some burning nerve pain. He states it has improved with the Neurontin. He uses Neurontin mostly at night. Continue Doxycycline. Renewed Percocet (30 tabs) for severe pain and was instructed not to take the pain medication while at work. He voiced understanding. Followup one week. Assessment AND Plan Problems 1. Laceration of right middle finger with foreign body and damage to nail S61.322A 2. Laceration of left index finger without foreign body without damage to nail S61.211A 3. Crushing injury of left index finger S67.191A 4. Crushing injury of right middle finger S67.192A Medications Discontinued: oxycodone-acetaminophen 5-325 1 tab PO 4X/DAY PRN 30 tabs 0S61.211A, S61.302A, S67.191A, mg (Percocet) 30 tabs (thirRF pain S67.192A, S68.622A ty) Discontinued Reason: B y Stop Date Coding Level of Care Code Off vis,est,level 4 Diagnoses Laceration of right middle finger with foreign body and damage to nail S61.322A Laceration of left index finger without foreign body without damage to nail S61.211A Crushing injury of left index finger S67.191A Crushing injury of right middle finger S67.192A 03/26/181800 <Electronically signed by Pepe Connor MD> Date Pepe Connor MD 04/01/181800<Electronically signed by Tavia LUCERO> Cosigner Signature: Date (if applicable) Tavia Cornelius PROGRAM MANAGEMENT INTERN-C CC: CBC W/DIFF, AUTOMATED Collected: 04/01/2018 Status: F Source: JANY 11:30 AM [facility] REPOSITORY TYPE CODE TESTS RESULT OUT OF RANGE REFERENCE UNITS LAB L100.1000 4.4-11.0 K/mm3 Normal WBC 5.0 LAB L100.1200 4.6-6.2 M/mm3 Low RBC 4.30 LAB L100.1300 13.0-16.5 g/dl Normal HGB 13.2 LAB L100.1400 40-54 % Low HCT 39.1 LAB L100.1500 80-94 fL Normal MCV 90.9 LAB L100.1600 27.0-32.0 pg Normal MCH 30.7 LAB L100.1700 32-36 g/gl Normal MCHC 33.8 LAB L100.1810 11.6-14.6 % Low RDW CV 11.5 LAB L100.1820 35.1-43.9 fl Normal RDW SD 37.8 LAB L100.1900 150-450 K/mm3 Normal PLT 211 LAB L100.2000 6.2-12.0 fl Normal MPV 10.2 LAB L100.2100 47-70 % Normal NEUT% 58.3 LAB L100.2200 19-41 % Normal LY% 26.3 LAB L100.2300 0-10 % High MONO% 10.6 LAB L100.2400 0-5 % Normal EO% 4.2 LAB L100.2500 0-1 % Normal BASO% 0.6 LAB L100.2550 0.0-0.9 % Normal IM GRAN % 0.000 Result Comment: IG% - Immature Granulocytes (promyelocytes, myelocytes and metamyelocytes) > 1% indicates that a LEFT SHIFT is Present. LAB L100.2620 2.0-7.7 X10 3/uL Normal Absolute Neut 2.9 LAB L100.2720 0.83-4.51 X10 3/ul Normal Absolute Lymph 1.31 Performed By: #### L100.0100 #### [facility] [place], [address] COMPREHENSIVE METABOLIC Collected: 04/01/2018 Status: F Source: JANY [facility] 11:30 AM [facility] REPOSITORY TYPE CODE TESTS RESULT OUT OF RANGE REFERENCE UNITS LAB L501.0100 74-106 mg/dL High GLU 178 Result Comment: Fasting Glucose result greater than or equal to 126 mg/dL suggests DIABETES MELLITUS per A.D.A. criteria. Please note revised GLUCOSE reference range effective 2017. LAB L501.1000 7-18 mg/dL High BUN 20 LAB L501.1100 0.70-1.30 mg/dL Normal CREAT,SERUM 0.97 Result Comment: The validity of the calculated GFR AND GFRAA in patients over 70 years has not been determined. Clinical correlation is essential. LAB L501.1110 >60 mL/min Normal EST GFR 83 Result Comment: Non- GFR Calc LAB L501.1115 >60 mL/min Normal EST GFR - AA 101 Result Comment: GFR Calc LAB L501.1300 10-20 RATIO High BUN/CRE 20.5 LAB L501.1500 6.4-8.2 g/dL T Normal PROT 6.9 LAB L501.1800 3.2-5.0 g/dL Normal ALB 3.7 LAB L501.1950 2.2-4.2 g/dL Normal GLOB 3.2 LAB L501.2000 0.9-2.4 RATIO Normal A/G 1.2 LAB L501.2200 8.5-10.1 mg/dL Low CA 8.4 LAB L501.4100 15-37 U/L Normal AST 20 LAB L501.4305 45-117 U/L Normal ALK P 67 LAB L501.4405 16-61 U/L Normal ALT 29 LAB L501.4600 0.20-1.00 mg/dL T Normal BILI 0.60 LAB L501.5300 136-145 mmol/L NA Normal 139 LAB L501.5600 3.5-5.1 mmol/L K Normal 3.9 LAB L501.5900 98-107 mmol/L CL Normal 105 LAB L501.6100 21.0-32.0 mmol/L Normal CO2 25.0 LAB L501.6200 5-15 Normal GAP 9 Performed By: #### L500.4050, L501.9520 #### [facility] [address] [place], [place], [address] THYROID STIM HORMONE Collected: 04/01/2018 Status: F Source: JANY ([facility]) 11:30 AM [facility] REPOSITORY TYPE CODE TESTS RESULT OUT OF RANGE REFERENCE UNITS LAB L501.9520 0.358-3.74 uIU/mL Normal TSH 1.03 Performed By: #### L500.4050, L501.9520 #### [facility] [address] [place], [address] PLASTIC SURGERY Observed: 03/17/2018 Status: F Source: JANY VISIT REPORT 9:36 PM [facility] REPOSITORY [facility] [address] [facility] [address] [place] [address] OFFICE VISIT Date of Service: 03/16/18 MR#: [id number] Acct: [id number] Name: ROSE HERNANDEZ Rep #: [id number] : 1955 Provider: Pepe Connor MD Age/Sex: 62/M Location: [facility] Status: Signed Intake Vital Signs03/16/18 Blood Pressure 122/75 H H 03/16/18 Blood Pressure Location Lt brachial 03/16/18 Blood Pressure Position Sitting 03/16/18 Respiratory Rate 14 Intake Visit Reasons: evaluation crush injury right long finger with tip amputation Early Childhood Services Coordinator Required: No Accompanied by: None Is patient in pain?: Yes (RIGHT HAND LONG FINGER TIP PAIN SHOCKING AND THROBBING) Pain scale (1-10): 6 Allergies No Known Allergies Allergy (Verified 03/16/18 08:36) Medications Atorvastatin Calcium [Lipitor] 40 mg PO QHS 02/25/18 [History Confirmed 02/25/18] Cephalexin [Keflex] 500 mg PO Q6 #40 cap 02/25/18 [Rx] Metformin HCl [Glucophage] 500 mg PO BIDCM 02/25/18 [History Confirmed 02/25/18] Naproxen [Naprosyn] 500 mg PO BID #14 tab 02/25/18 [Rx] Pioglitazone [Actos] 30 mg PO DAILY 02/25/18 [History Confirmed 02/25/18] gabapentin 300 mg capsule 300 mg PO BID #60 cap 02/28/18 [Rx Confirmed 02/28/18] doxycycline hyclate 100 mg capsule 100 mg PO BID #42 cap 03/12/18 [Rx Confirmed 03/12/18] [facility] Medical History Diabetes (Acute) Neuropathy (Acute) Surgical History History of cholecystectomy (Acute) Family History Unknown No problems noted. Social History Smoking Status: Never smoker alcohol intake: current substance use type: does not use additional social history: DOES NOT USE ASPIRIN DOES NOT USE IBUPROFEN HPI evaluation crush injury right long finger with tip amputation: Details: HISTORY OF PRESENT ILLNESS 62 year old man presents with a crush injury to his right long finger when he was working with a piece of metal in a drill press. In addition to a crush injury to his right long finger, his left index finger was also caught in the press as well. The injury occurred on 02/25/18. Patient is right hand dominant. He went to the ED, and xray right long finger showed no fracture and the presence of a tiny radiopaque foreign body. Xray left index finger showed no fracture and no radiopaque foreign body seen. He sustained a laceration to his left index finger on the distal volar area that was cleansed and suture repaired. He sustained a tip amputation right long finger with soft tissue exposed. No bone was exposed. The distal half of the nail bed was involved with the amputation. The nail plate is not present. The wound was cleansed and the tiny foreign body removed and wrapped with xeroform gauze. He was placed on Keflex and Keene and discharged. He presented to my office on for further evaluation. The wound was clean and he was started on antibiotic ointment daily. He continued at work. I recommended not being involved with machinery while at work. He states he is doing ok at work except for hitting his finger when lifting objects at work. He has finished the Keflex and was started on Doxycycline. He presents today for further evaluation and treatment. REVIEW OF SYSTEMS General - Denies fever, fatigue, and weight loss. Eyes - Denies cataracts and glaucoma. ENT - Denies nasal congestion and sore throat. Endocrine - Denies excessive thirst and urination. Has diabetes mellitus. Skin - Denies suspicious lesions and skin cancer. Has laceration repair left index finger. Has tip amputation right long finger with soft tissue exposed and no bone exposed and involving the nail. Musculoskeletal - Denies joint pain, joint stiffness, weakness of muscles and joints, back pain, and arthritis. Has tip amputation right long finger with soft tissue exposed and no bone exposed and involving the nail. Neuro - Denies headaches. Cardiovascular - Denies chest pain, fatigue, and shortness of breath with exertion. Psych - Denies anxiety and depression. Respiratory - Denies chronic cough and shortness of breath. Gastrointestinal - Denies nausea, vomiting, diarrhea, and constipation. Hematologic - Denies abnormal bruising and bleeding. Genitourinary - Denies hematuria and urinary frequency. PHYSICAL EXAMINATION General - Alert and Oriented HEENT - PERRL. EOMI. Throat is clear. Neck - Supple and nontender. No cervical adenopathy. Lungs - Clear to auscultation. Heart - Regular rate and rhythm. Abdomen - Soft and nondistended. Extremities - FROM. Flexion involving the DIP and PIP joints of the right long finger and left index finger intact. Has soft tissue loss right long fingertip. Measures smaller at 2 cm and involves both the volar and dorsal side of the finger. No bone exposed. Distal half of the nail bed has been amputated. The nail plate is not present. Has paresthesias at the right long finger tip. Proximally there is painful burning from the crush injury. The wound is clean without evidence of infection. Mild swelling present. He has good range of motion of his fingers right hand and can make a fist. He has good brain surgeon strength. On the left index finger distal volar aspect is a suture repaired laceration. Measures 2 cm. Incision is dry and intact and healing. Fingers are warm with good capillary refill except for the right long finger because the tip has been amputated. No axillary adenopathy. Radial pulses are palpable. Neuro - CN II-XII grossly intact. Psych - Normal mood and affect. ASSESSMENT 1. Partial amputation right long fingertip involving the nail with 2 cm soft tissue wound and without bone exposure, slowly healing. 2. 2 cm laceration distal volar aspect left index finger, healing. 3. 2.5 cm open wound right long fingertip with damage to nail, slowly healing. 4. Crush injury right long finger and left index finger. PLAN DEBRIDEMENT NOTE After using cetacaine spray anesthesia, I used a #3 curette and sharply debrided the wound down to the subcutaneous tissue as an excisional debridement. Good bleeding was seen in the subcutaneous tissue after the excisional debridement. In addition to the subcutaneous tissue, I also debrided some senescent cells, some increased bioburden, and some devitalized tissue. Patient tolerated the procedure well. Hemostasis was obtained with gentle pressure. The wound was redressed with antibiotic ointment. The dimensions of the wound increased after excisional debridement to 2.1 cm. He has finished the Keflex antibiotics and was started on Doxycycline because of risk of osteomyelitis from the crush injury. Discussed with him treatment options. These include continued wound care with antibiotic ointment until healed or operative debridement and skin grafting or operative debridement and complex 2 stage reconstruction with a thenar flap. The second stage would be in 3 weeks which is division and inset of the flap. The last resort option is revision amputation. The patient doesn't want the complex flap at this time since he is back to work and doesn't want two procedures at this time. As long as the wound cooperates, continuing local wound care should heal about the same time as a skin graft. He is interested in proceeding with local wound care with antibiotic ointment daily. He is aware that he is at risk of chronic pain in the finger and osteomyelitis and stiffness and neuroma secondary to the crushing injury that may need surgical intervention in the future Will monitor his wound closely and see him on a weekly basis until healed because of his diabetes mellitus that increases the risk of wound healing issues and infection. That is why I will keep him on antibiotics until healed. If suboptimal healing is seen or if infection develops, then operative debridement would be necessary. In this situation, we may be able to salvage the finger tip with a two stage thenar flap but may need a revision amputation depending on the extent of the operative debridement. He is doing ok at work except for when he bumps his finger when he lifts things. The main restriction is he cannot be around moving or motorized machinery. I will add a 20 lb lifting restriction as well. He states there are other things he can do while at work. He was also advised during his breaks to go to the bathroom and cleanse the right long fingertip wound and reapply antibiotic ointment and wrap with gauze. When at home he can dress with a bandaid. He will continue antibiotic ointment to the left index finger suture line daily until the sutures are removed. I anticipate suture removal in the next week. With the crushing injury he is having some burning nerve pain. He states it has improved with the Neurontin. He uses Neurontin mostly at night. He has Percocet for severe pain and was instructed not to take the pain medication while at work. He voiced understanding. Followup one week. ADDENDUM On the First Report of an Injury, Occupational Disease or the official ICD-10 codes for this claim are erroneous. One of the codes listed on that sheet is S16.211A which does not exist. The closest code to that is S16.2xxA which is Laceration of muscle, fascia and tendon at neck level. The EXACT code should be S61.211A which is Laceration without foreign body of left index finger without damage to nail. The other code listed on that sheet is S68.122A which is Partial traumatic metacarpophalangeal amputation of right middle finger. This code is erroneous. The EXACT code should be S68.622A which is Partial traumatic transphalangeal amputation of right middle finger. Additional code for support is S67.192A which is Crushing injury of right middle finger. Additional code for support is S67.191A which is Crushing injury of left index finger. Additional code for support is S61.302A which is Unspecified open wound of right middle finger with damage to nail. Assessment AND Plan Problems 1. Partial traumatic metacarpophalangeal amputation of right middle finger, initial encounter S68.122A 2. Partial traumatic transphalangeal amputation of right middle finger, initial encounter S68.622A 3. Laceration of left index finger without foreign body without damage to nail S61.211A 4. Crushing injury of right middle finger S67.192A 5. Crushing injury of left index finger S67.191A 6. Open wound of right middle finger with damage to nail S61.302A Coding Level of Care Code Off vis,est,level 4 Diagnoses Partial traumatic metacarpophalangeal amputation of right middle finger, initial encounter S68.122A Partial traumatic transphalangeal amputation of right middle finger, initial encounter S68.622A Laceration of left index finger without foreign body without damage to nail S61.211A Crushing injury of right middle finger S67.192A Crushing injury of left index finger S67.191A Open wound of right middle finger with damage to nail S61.302A 03/17/182135 <Electronically signed by Pepe Connor MD> Date Pepe Connor MD Cosigner Signature: Date (if applicable) CC: PLASTIC SURGERY Observed: 03/12/2018 Status: F Source: SEVERY VISIT REPORT 6:36 PM [facility] REPOSITORY [facility] [address] [address] OFFICE VISIT Date of Service: 03/09/18 MR#: [id number] Acct: [id number] Name: ROSE HERNANDEZ Rep #: [id number] : 1955 Provider: Pepe Connor MD Age/Sex: 62/M Location: [facility] Status: Signed Intake Vital Signs03/09/18 Blood Pressure 120/68 03/09/18 Blood Pressure Location Lt brachial 03/09/18 Blood Pressure Position Sitting 03/09/18 Respiratory Rate 14 Intake Visit Reasons: evaluation crush injury right long finger with tip amputation Early Childhood Services Coordinator Required: No Accompanied by: None Is patient in pain?: Yes (RIGHT HAND LONG FINGER/LEFT INDEX FINGER SHARP,THROBBING,BURNING,NEEDLES) Pain scale (1-10): 5 Allergies No Known Allergies Allergy (Verified 03/09/18 09:27) Medications Atorvastatin Calcium [Lipitor] 40 mg PO QHS 02/25/18 [History Confirmed 02/25/18] Cephalexin [Keflex] 500 mg PO Q6 #40 cap 02/25/18 [Rx] Metformin HCl [Glucophage] 500 mg PO BIDCM 02/25/18 [History Confirmed 02/25/18] Naproxen [Naprosyn] 500 mg PO BID #14 tab 02/25/18 [Rx] Pioglitazone [Actos] 30 mg PO DAILY 02/25/18 [History Confirmed 02/25/18] gabapentin 300 mg capsule 300 mg PO BID #60 cap 02/28/18 [Rx Confirmed 02/28/18] doxycycline hyclate 100 mg capsule 100 mg PO BID #42 cap 03/12/18 [Rx Confirmed 03/12/18] [facility] Medical History Diabetes (Acute) Neuropathy (Acute) Surgical History History of cholecystectomy (Acute) Family History Unknown No problems noted. Social History Smoking Status: Never smoker alcohol intake: current substance use type: does not use additional social history: DOES NOT USE ASPIRIN DOES NOT USE IBUPROFEN HPI evaluation crush injury right long finger with tip amputation: Details: HISTORY OF PRESENT ILLNESS 62 year old man presents with a crush injury to his right long finger when he was working with a piece of metal in a drill press. In addition to a crush injury to his right long finger, his left index finger was also caught in the press as well. The injury occurred on 02/25/18. Patient is right hand dominant. He went to the ED, and xray right long finger showed no fracture and the presence of a tiny radiopaque foreign body. Xray left index finger showed no fracture and no radiopaque foreign body seen. He sustained a laceration to his left index finger on the distal volar area that was cleansed and suture repaired. He sustained a tip amputation right long finger with soft tissue exposed. No bone was exposed. The distal half of the nail bed was involved with the amputation. The nail plate is not present. The wound was cleansed and the tiny foreign body removed and wrapped with xeroform gauze. He was placed on Keflex and Keene and discharged. He presented to my office on 02/28/18 for further evaluation. The wound was clean and he was started on antibiotic ointment daily. He continued at work. I recommended not being involved with machinery while at work. He states he is doing ok at work. He presents today for further evaluation and treatment. REVIEW OF SYSTEMS General - Denies fever, fatigue, and weight loss. Eyes - Denies cataracts and glaucoma. ENT - Denies nasal congestion and sore throat. Endocrine - Denies excessive thirst and urination. Has diabetes mellitus. Skin - Denies suspicious lesions and skin cancer. Has laceration repair left index finger. Has tip amputation right long finger with soft tissue exposed and no bone exposed and involving the nail. Musculoskeletal - Denies joint pain, joint stiffness, weakness of muscles and joints, back pain, and arthritis. Has tip amputation right long finger with soft tissue exposed and no bone exposed and involving the nail. Neuro - Denies headaches. Cardiovascular - Denies chest pain, fatigue, and shortness of breath with exertion. Psych - Denies anxiety and depression. Respiratory - Denies chronic cough and shortness of breath. Gastrointestinal - Denies nausea, vomiting, diarrhea, and constipation. Hematologic - Denies abnormal bruising and bleeding. Genitourinary - Denies hematuria and urinary frequency. PHYSICAL EXAMINATION General - Alert and Oriented HEENT - PERRL. EOMI. Throat is clear. Neck - Supple and nontender. No cervical adenopathy. Lungs - Clear to auscultation. Heart - Regular rate and rhythm. Abdomen - Soft and nondistended. Extremities - FROM. Flexion involving the DIP and PIP joints of the right long finger and left index finger intact. Has soft tissue loss right long fingertip. Measures 2.5 cm and involves both the volar and dorsal side of the finger. No bone exposed. Distal half of the nail bed has been amputated. The nail plate is not present. Has paresthesias at the right long finger tip. Proximally there is painful burning from the crush injury. The wound is clean without evidence of infection. Mild swelling present. On the left index finger distal volar aspect is a suture repaired laceration. Measures 2 cm. Incision is dry and intact. Fingers are warm with good capillary refill except for the right long finger because the tip has been amputated. No axillary adenopathy. Radial pulses are palpable. Neuro - CN II-XII grossly intact. Psych - Normal mood and affect. ASSESSMENT 1. Partial amputation right long fingertip involving the nail with 2.5 cm soft tissue wound and without bone exposure, stable. 2. 2 cm laceration distal volar aspect left index finger, healing. 3. 2.5 cm open wound right long fingertip with damage to nail, stable. 4. Crush injury right long finger and left index finger. PLAN DEBRIDEMENT NOTE After using cetacaine spray anesthesia, I used a #3 curette and sharply debrided the wound down to the subcutaneous tissue as an excisional debridement. Good bleeding was seen in the subcutaneous tissue after the excisional debridement. In addition to the subcutaneous tissue, I also debrided some senescent cells, some increased bioburden, and some devitalized tissue. Patient tolerated the procedure well. Hemostasis was obtained with gentle pressure. The wound was redressed with antibiotic ointment. The dimensions of the wound increased after excisional debridement to 2.6 cm. He is done with the Keflex antibiotics. Will continue antibiotics with Doxycycline because of risk of osteomyelitis from the crush injury. Discussed with him treatment options. These include continued wound care with antibiotic ointment until healed or operative debridement and skin grafting or operative debridement and complex 2 stage reconstruction with a thenar flap. The second stage would be in 3 weeks which is division and inset of the flap. The last resort option is revision amputation. The patient doesn't want the complex flap at this time since he is back to work and doesn't want two procedures at this time. As long as the wound cooperates, continuing local wound care should heal about the same time as a skin graft. He is interested in proceeding with local wound care with antibiotic ointment daily. He is aware that he is at risk of chronic pain in the finger and osteomyelitis and stiffness and neuroma secondary to the crushing injury that may need surgical intervention in the future Will monitor his wound closely and see him on a weekly basis until healed because of his diabetes mellitus that increases the risk of wound healing issues and infection. That is why I will keep him on antibiotics until healed. If suboptimal healing is seen or if infection develops, then operative debridement would be necessary. In this situation, we may be able to salvage the finger tip with a two stage thenar flap but may need a revision amputation depending on the extent of the operative debridement. He is doing ok at work. The main restriction is he cannot be around moving or motorized machinery. He states there are other things he can do while at work. He was also advised during his breaks to go to the bathroom and cleanse the right long fingertip wound and reapply antibiotic ointment and wrap with gauze. When at home he can dress with a bandaid. He will continue antibiotic ointment to the left index finger suture line daily until the sutures are removed. I anticipate suture removal in the next 1-2 weeks. With the crushing injury he is having some burning nerve pain. He states it has improved with the Neurontin. He has Percocet for severe pain and was instructed not to take the pain medication while at work. He voiced understanding. Followup one week. ADDENDUM On the First Report of an Injury, Occupational Disease or the official ICD-10 codes for this claim are erroneous. One of the codes listed on that sheet is S16.211A which does not exist. The closest code to that is S16.2xxA which is Laceration of muscle, fascia and tendon at neck level. The EXACT code should be S61.211A which is Laceration without foreign body of left index finger without damage to nail. The other code listed on that sheet is S68.122A which is Partial traumatic metacarpophalangeal amputation of right middle finger. This code is erroneous. The EXACT code should be S68.622A which is Partial traumatic transphalangeal amputation of right middle finger. Additional code for support is S67.192A which is Crushing injury of right middle finger. Additional code for support is S67.191A which is Crushing injury of left index finger. Additional code for support is S61.302A which is Unspecified open wound of right middle finger with damage to nail. Assessment AND Plan Problems 1. Partial traumatic metacarpophalangeal amputation of right middle finger, initial encounter S68.122A 2. Partial traumatic transphalangeal amputation of right middle finger, initial encounter S68.622A 3. Laceration of left index finger without foreign body without damage to nail S61.211A 4. Crushing injury of right middle finger S67.192A 5. Crushing injury of left index finger S67.191A 6. Open wound of right middle finger with damage to nail S61.302A Medications New: Discontinued: doxycycline hyclate Discontinued Reason: Ordered/Entered in100 mg PO BID 21 caps 1RF error Coding Level of Care Code Off vis,est,level 4 Diagnoses Partial traumatic metacarpophalangeal amputation of right middle finger, initial encounter S68.122A Partial traumatic transphalangeal amputation of right middle finger, initial encounter S68.622A Laceration of left index finger without foreign body without damage to nail S61.211A Crushing injury of right middle finger S67.192A Crushing injury of left index finger S67.191A Open wound of right middle finger with damage to nail S61.302A 03/12/18 1836 <Electronically signed by Pepe Connor MD> Date Pepe Connor MD Cosigner Signature: Date (if applicable) CC: PLASTIC SURGERY Observed: 03/06/2018 Status: F Source: SEVERY VISIT REPORT 12:40 PM [facility] REPOSITORY [facility] [address] [facility] [address] [place] [address] OFFICE VISIT Date of Service: 02/28/18 MR#: [id number] Acct: [id number] Name: ROSE HERNANDEZ Rep #: [id number] : 1955 Provider: Pepe Connor MD Age/Sex: 62/M Location: [facility] Status: Signed Intake Vital Signs02/28/18 Height 5 ft 10 in 02/28/18 Weight: 173 lb 6 oz Intake Visit Reasons: evaluation crush injury right long finger with tip amputation Early Childhood Services Coordinator Required: No Accompanied by: None Is patient in pain?: Yes (RIGHT LONG FINGER PAIN STINGING PINS) Pain scale (1-10): 4 Allergies No Known Allergies Allergy (Verified 02/28/18 16:18) Medications Atorvastatin Calcium [Lipitor] 40 mg PO QHS 02/25/18 [History Confirmed 02/25/18] Cephalexin [Keflex] 500 mg PO Q6 #40 cap 02/25/18 [Rx] Metformin HCl [Glucophage] 500 mg PO BIDCM 02/25/18 [History Confirmed 02/25/18] Naproxen [Naprosyn] 500 mg PO BID #14 tab 02/25/18 [Rx] Pioglitazone [Actos] 30 mg PO DAILY 02/25/18 [History Confirmed 02/25/18] gabapentin 300 mg capsule 300 mg PO BID #60 cap 02/28/18 [Rx Confirmed 02/28/18] oxycodone-acetaminophen 5 mg-325 mg tablet 1 tab PO 4X/DAY PRN #30 tab 02/28/18 [Rx Confirmed 02/28/18] PFSH Medical History Diabetes (Acute) Neuropathy (Acute) Surgical History History of cholecystectomy (Acute) Family History Unknown No problems noted. Social History Smoking Status: Never smoker alcohol intake: current substance use type: does not use additional social history: DOES NOT USE ASPIRIN DOES NOT USE IBUPROFEN HPI evaluation crush injury right long finger with tip amputation: Details: HISTORY OF PRESENT ILLNESS 62 year old man presents with a crush injury to his right long finger when he was working with a piece of metal in a drill press. In addition to a crush injury to his right long finger, his left index finger was also caught in the press as well. Patient is right hand dominant. Xray right long finger showed no fracture and the presence of a tiny radiopaque foreign body. Xray left index finger showed no fracture and no radiopaque foreign body seen. He sustained a laceration to his left index finger on the distal volar area that was cleansed and suture repaired. He sustained a tip amputation right long finger with soft tissue exposed. No bone was exposed. The distal half of the nail bed was involved with the amputation. The nail plate is not present. The wound was cleansed and the tiny foreign body removed and wrapped with xeroform gauze. He was placed on Keflex and Keene and discharged. He presents today for further evaluation and treatment. REVIEW OF SYSTEMS General - Denies fever, fatigue, and weight loss. Eyes - Denies cataracts and glaucoma. ENT - Denies nasal congestion and sore throat. Endocrine - Denies excessive thirst and urination. Has diabetes mellitus. Skin - Denies suspicious lesions and skin cancer. Has laceration repair left index finger. Has tip amputation right long finger with soft tissue exposed and no bone exposed and involving the nail. Musculoskeletal - Denies joint pain, joint stiffness, weakness of muscles and joints, back pain, and arthritis. Has tip amputation right long finger with soft tissue exposed and no bone exposed and involving the nail. Neuro - Denies headaches. Cardiovascular - Denies chest pain, fatigue, and shortness of breath with exertion. Psych - Denies anxiety and depression. Respiratory - Denies chronic cough and shortness of breath. Gastrointestinal - Denies nausea, vomiting, diarrhea, and constipation. Hematologic - Denies abnormal bruising and bleeding. Genitourinary - Denies hematuria and urinary frequency. PHYSICAL EXAMINATION General - Alert and Oriented HEENT - PERRL. EOMI. Throat is clear. Neck - Supple and nontender. No cervical adenopathy. Lungs - Clear to auscultation. Heart - Regular rate and rhythm. Abdomen - Soft and nondistended. Extremities - FROM. Flexion involving the DIP and PIP joints of the right long finger and left index finger intact. Has soft tissue loss right long fingertip. Measures 2.5 cm and involves both the volar and dorsal side of the finger. No bone exposed. Distal half of the nail bed has been amputated. The nail plate is not present. Has paresthesias at the right long finger tip. Proximally there is painful burning from the crush injury. The wound is clean without evidence of infection. Mild swelling present. On the left index finger distal volar aspect is a suture repaired laceration. Measures 2 cm. Incision is dry and intact. Fingers are warm with good capillary refill except for the right long finger because the tip has been amputated. No axillary adenopathy. Radial pulses are palpable. Neuro - CN II-XII grossly intact. Psych - Normal mood and affect. ASSESSMENT 1. Partial amputation right long fingertip involving the nail with 2.5 cm soft tissue wound and without bone exposure. 2. 2 cm laceration distal volar aspect left index finger, healing. 3. 2.5 cm open wound right long fingertip with damage to nail. 4. Crush injury right long finger and left index finger. PLAN Continue Keflex antibiotics. When finished, I will continue his antibiotics and may change to Doxycycline because of risk of osteomyelitis from the crush injury. Discussed with him treatment options. These include continued wound care with antibiotic ointment until healed or operative debridement and skin grafting or operative debridement and complex 2 stage reconstruction with a thenar flap. The second stage would be in 3 weeks which is division and inset of the flap. The last resort option is revision amputation. The patient doesn't want the complex flap at this time since he is anxious to get back to work. As long as the wound cooperates, continuing local wound care should heal about the same time as a skin graft. He is interested in proceeding with local wound care with antibiotic ointment daily. He is aware that he is at risk of chronic pain in the finger and osteomyelitis and stiffness and neuroma secondary to the crushing injury that may need surgical intervention in the future Will monitor his wound closely and see him on a weekly basis until healed because of his diabetes mellitus that increases the risk of wound healing issues and infection. That is why I will keep him on antibiotics until healed. If suboptimal healing is seen or if infection develops, then operative debridement would be necessary. In this situation, we may be able to salvage the finger tip with a two stage thenar flap but may need a revision amputation depending on the extent of the operative debridement. He states he worked and today and wants to go back to work tomorrow. The main restriction is he cannot be around moving or motorized machinery. He states there are other things he can do while at work. He was also advised during his breaks to go to the bathroom and cleanse the right long fingertip wound and reapply antibiotic ointment and wrap with gauze. When at home he can dress with a bandaid. He will continue antibiotic ointment to the left index finger suture line daily until the sutures are removed. I anticipate suture removal in the next 2-3 weeks. With the crushing injury he is having some burning nerve pain. Wrote a script for Neurontin twice a day (60 tabs) and a refill. Also wrote a script for Percocet for pain (30 tabs). He was instructed not to take the pain medication while at work. Followup one week. ADDENDUM On the First Report of an Injury, Occupational Disease or the official ICD-10 codes for this claim are erroneous. One of the codes listed on that sheet is S16.211A which does not exist. The closest code to that is S16.2xxA which is Laceration of muscle, fascia and tendon at neck level. The EXACT code should be S61.211A which is Laceration without foreign body of left index finger without damage to nail. The other code listed on that sheet is S68.122A which is Partial traumatic metacarpophalangeal amputation of right middle finger. This code is erroneous. The EXACT code should be S68.622A which is Partial traumatic transphalangeal amputation of right middle finger. Additional code for support is S67.192A which is Crushing injury of right middle finger. Additional code for support is S67.191A which is Crushing injury of left index finger. Additional code for support is S61.302A which is Unspecified open wound of right middle finger with damage to nail. Assessment AND Plan Problems 1. Partial traumatic metacarpophalangeal amputation of right middle finger, initial encounter S68.122A 2. Partial traumatic transphalangeal amputation of right middle finger, initial encounter S68.622A 3. Laceration of left index finger without foreign body without damage to nail S61.211A 4. Crushing injury of right middle finger S67.192A 5. Crushing injury of left index finger S67.191A 6. Open wound of right middle finger with damage to nail S61.302A Medications New: Coding Level of Care Code Off vis,new,level 4 Diagnoses Partial traumatic metacarpophalangeal amputation of right middle finger, initial encounter S68.122A Partial traumatic transphalangeal amputation of right middle finger, initial encounter S68.622A Laceration of left index finger without foreign body without damage to nail S61.211A Crushing injury of right middle finger S67.192A Crushing injury of left index finger S67.191A Open wound of right middle finger with damage to nail S61.302A 03/06/18 1240 <Electronically signed by Pepe Connor MD> Date Pepe Connor MD Cosigner Signature: Date (if applicable) CC: EMERGENCY DEPARTMENT Observed: 02/25/2018 Status: F Source: SEVERY SUMMARY 6:33 PM [facility] REPOSITORY [facility] Medical Records Department [address] [place] [address] Emergency Department Summary 02/25/18 0920 MR#: [id number] Acct: [id number] Name: ROSE HERNANDEZ Rep #: [id number] : 1955 62 From: Alejandro Rehman MD PCP: Care Physician, No Primary Status: DEP ER - ER Visit Summary Date of Service: 02/25/18 Chief Complaint: Laceration History of Present Illness: The patient is a 62 M who reports that he was working with small piece of metal in a drill press. He brought depressed around and crushed his left index and right middle fingers. Reports his left index pain is 6 out of 10 severity. His right middle finger is 10 out of 10 in severity. Is worsened by movement. He describes the pain as throbbing. He is right-hand dominant. He is unsure when his last tetanus shot was. Physical Examination: Vitals: Stable. Afebrile. General: Well-nourished and well-developed. Head: Normocephalic atraumatic. Neck: Supple, no lymphadenopathy. No JVD. Nontender. Cardiovascular: Regular rate and rhythm. No murmurs. Respiratory: No respiratory distress. Clear to auscultation bilaterally. Abdominal: Soft, nontender, nondistended, normal bowel sounds. No guarding, rebound, or peritoneal signs. Back: Nontender. Extremities: Left index finger has a 2 cm flap laceration that is through the dermis and has connective tissue present underneath this. It does appear viable. Is not dusky. Right middle finger shows exposed connective tissue without exposed bone. There is no covering epidermis. The nail was avulsed.. Skin: Normal color, no rash. Neurologic: Alert and oriented 3. Cranial nerves II through XII are intact. Normal strength and sensation. Psych: Normal affect. Test Results: Clinical Impression(s) from Imaging Studies Finger X-Ray 02/25/18 08:48 IMPRESSION: Soft tissue laceration overlying the distal phalanx of the third digit with a tiny radiopaque foreign body. Electronically Signed: Leo Staples MD at 9:51 EST Tel [phone], Service support , Finger X-Ray 02/25/18 08:48 IMPRESSION: Soft tissue laceration overlying the distal phalanx. No radiopaque foreign body is seen. Electronically Signed: Leo Staples MD at 9:50 EST Tel [phone], Service support , Emergency Department Course and Treatment: Patient had the wound on his left index finger repaired. He tolerated this well. He did have a digital block performed to each of the fingers that was involved. The right middle finger was cleansed and a small piece of metal was removed. It was copiously irrigated with normal saline. A dressing was then placed. Treatment Plan: Patient was discussed with Dr. Connor who has seen pictures of the wound and of the x-ray. He has the patient have a dressing placed and he will see him in the office in 3 days and discussed treatment options with him. Patient will be discharged on Keflex and given a first dose in the emergency department. He also be given Keene and naproxen for pain. Return to the emergency department for any worsening symptoms. Disposition: To home in improved and stable condition. Impression: 1. Laceration left index finger, 2 cm, repaired. 2. Partial amputation right middle fingertip. Procedure note: Wound was cleansed with chlorhexidine soap. Anesthetized with a digital block with bupivacaine without epinephrine. Copiously irrigated with normal saline. Wound was explored there is no foreign material present. It was closed with 5 simple interrupted 4-0 ethilon sutures. The patient tolerated it well. This note was generated with [employer] dictation software. It may contain incorrect words, spelling, and punctuation that were not noted in review of the chart prior to signing ED Disposition - Plan for ED Patient: Disposition: Home or Assisted Living Chief Complaint: Laceration Instructions: ED Laceration Amputation Finger Tip Open Tx Prescriptions: Hydrocodone Bitart/Apap 5-325 [Keene 5MG-325MG] 1 tablet PO Q4H PRN PRN 2 Days #10 tablet PRN Reason: Pain Cephalexin [Keflex] 500 mg PO Q6 #40 capsule Naproxen [Naprosyn] 500 mg PO BID #14 tablet Referrals: [facility] [GROUP OF PHYSICIANS] - Pepe Connor MD [STAFF PHYSICIAN] - 02/28/18 What to do if you have Problems For any increased pain, shortness of breath, bleeding, nausea or vomiting, chest pain, or any unexpected problems, contact your Primary Care Provider. Call [facility] ([phone]) or report to the closest Emergency Room. Call 911 if necessary. 02/25/18 0923 <Electronically signed by Alejandro Rehman MD> Date Alejandro Rehman MD Cosigner Signature (If Indicated): Date CC: No Primary Care Physician FINGER(S) MIN 2 VIEWS Observed: 02/25/2018 Status: F Source: JANY 8:48 AM [facility] REPOSITORY [facility] Imaging Services [address] [place] [address] Finger(s) Min 2 Views MR#: [id number] Acct: [id number] Name: ROSE HERNANDEZ Rep #: [id number] : 1955 M 62 From: Leo Staples MD PCP: Care Physician, No Primary Status: REG ER Study: Finger(s) Min 2 Views Date of Exam: 02/25/18 Exam# [id number] Ordering Dr: Alejandro Rehman MD STUDY: X-RAY - LEFT HAND, ATTENTION INDEX FINGER REASON FOR EXAM: Male, 62 years old. Crush injury to the index finger. TECHNIQUE: view(s) of the finger were obtained. COMPARISON: None. FINDINGS: Normal metacarpal head. Normal metacarpophalangeal joint. Normal proximal phalanx. Normal middle phalanx. Normal distal phalanx. Normal proximal interphalangeal joint. Findings suggest lobar degenerative spurring at the distal interphalangeal joint. Soft tissue laceration overlying the distal phalanx. RAD/Finger(s) Min 2 Views IMPRESSION: Soft tissue laceration overlying the distal phalanx. No radiopaque foreign body is seen. Electronically Signed: Leo Staples MD at 9:50 EST Tel [phone], Service support , CC: No Primary Care Physician; Alejandro Rehman MD Meat Lugger: Signed FINGER(S) MIN 2 VIEWS Observed: 02/25/2018 Status: F Source: JANY 8:48 AM [facility] REPOSITORY [facility] Imaging Services [address] [place] [address] Finger(s) Min 2 Views MR#: [id number] Acct: [id number] Name: ROSE HERNANDEZ Rep #: [id number] : 1955 M 62 From: Leo Staples MD PCP: Care Physician, No Primary Status: REG ER Study: Finger(s) Min 2 Views Date of Exam: 02/25/18 Exam# [id number] Ordering Dr: Alejandro Rehman MD STUDY: X-RAY - RIGHT HAND, ATTENTION . FINGER REASON FOR EXAM: Male, 62 years old. Crush injury. TECHNIQUE: 3 view(s) of the finger were obtained. COMPARISON: None. FINDINGS: Normal metacarpal head. Normal metacarpophalangeal joint. Normal proximal phalanx. Normal middle phalanx. Normal distal phalanx. Normal proximal interphalangeal joint. Normal distal interphalangeal joint. Soft tissue laceration overlying the distal phalanx of the index finger. A tiny radiopacity is seen within the soft tissues overlying the tuft of the distal pharynx. This most likely represents a tiny radiopaque foreign body. RAD/Finger(s) Min 2 Views IMPRESSION: Soft tissue laceration overlying the distal phalanx of the third digit with a tiny radiopaque foreign body. Electronically Signed: Leo Staples MD at 9:51 EST Tel [phone], Service support , CC: No Primary Care Physician; Alejandro Rehman MD Meat Lugger: Signed ALLERGIES ALLERGIES DATE TYPE / CODE NAME / CODE REACTION SEVERITY SOURCE 05/05/2018 Drug No Known Unknown [facility] Allergy/4160 Allergies/F00 [facility] [address]17(SNOMED [id number](RXNOR Repository CT) M) ENCOUNTERS ENCOUNTERS ADMIT/DISCHARGE ACCOUNT ADMITTING ENCOUNTER LOCATION SOURCE NUMBER CLASS 05/05/2018/ [id number] Ambulatory BMSBuilding:B [place] 9 4 [place] Repository 04/28/2018/ [id number] Ambulatory BMSBuilding:B [place] 9 7 [facility] Repository 04/21/2018/ [id number] Ambulatory BMSBuilding:B [place] 9 7 [facility] Repository 04/06/2018/ [id number] Ambulatory BMSBuilding:[place] 8 4 [place] Repository 04/01/2018 [id number] Ambulatory Jany Jany 4 [facility] ing:POLAB3 Repository 03/30/2018/ [id number] Ambulatory BMSBuilding:B [place] 8 3 [facility] Repository 03/23/2018/ [id number] Ambulatory BMSBuilding:B [place] 8 9 [facility] Repository 03/16/2018/ [id number] Ambulatory BMSBuilding:B [place] 8 5 [facility] Repository 03/09/2018/ [id number] Ambulatory BMSBuilding:B [place] 8 1 [facility] Repository 02/28/2018/ [id number] Ambulatory BMSBuilding:B [place] 8 9 [facility] Repository 02/25/2018/ [id number] [facility] [place] 8 4 [facility] ing:ED Repository PAYERS PAYERS ENCOUNTER GUARANTOR PAYER SUBSCRIBER SOURCE 05/05/2018 ROSE Anaya [id number] Primary ROSE Rodas [facility] Insurance[facility]OB[facility] [id number] [address]Kav: ([phone]) ADMINPolicy Number: Repository [phone] [id number] Date: [place], [place] [address]KA: 05/05/2018 Secondary NOT GIVENUNK [place] Insurance:SELF PAY [facility] Number: Effective Repository Date:2018-05-05 04/28/2018 ROSE A [id number] Primary ROSE A [place] [facility] Insurance:OB LOWERSDOB: [facility] [id number] Hospital [address]Eny: ([phone]) ADMINPolicy Number: Repository [phone] () [id number] Date: [place], [place] [address]AJ: 04/28/2018 Secondary NOT GIVENUNK [place] Insurance:SELF PAY [facility] Number: Effective Repository Date:2018-04-28 04/21/2018 ROSE A [id number] Primary ROSE A [place] N [facility] Insurance:OB LOWERSDOB: [facility] [id number] [id number]: ([phone]) ADMINPolicy Number: Repository [phone] () [id number] Date: [place], [place] [address]LN: 04/21/2018 Secondary NOT GIVENUNK [place] Insurance:SELF PAY [facility] Number: Effective Repository Date:2018-04-21 04/06/2018 ROSE A [id number] Primary ROSE A [place] N [facility] Insurance:OB LOWERSDOB: [facility] [id number] [id number]: [phone]) ADMINPolicy Number: Repository [phone] ) [id number] Date: [place], [place] [address]ZE: 04/06/2018 Secondary NOT GIVENUNK [place] Insurance:SELF PAY [facility] Number: Effective Repository Date:2018-04-06 04/01/2018 ROSE A [id number] Primary ROSE A [place] N [facility] Insurance:OB LOWERSDOB: [facility] [id number] Hospital [address]Uyt: ([phone]) ADMINPolicy Number: Repository [phone] () [id number] Date: [place], [place] [address]TJ: 04/01/2018 Secondary NOT GIVENUNK [place] Insurance:SELF PAY [facility] Number: Effective Repository Date:2018-04-01 03/30/2018 ROES A [id number] Primary ROSE A [place] Insurance:OB LOWERSDOB: [facility] [id number] Hospital [address]Cur: (085) ADMINPolicy Number: Repository [phone] () [id number] Date: [place], [place] [address]VX: 03/30/2018 Secondary NOT GIVENUNK [place] Insurance:SELF PAY [facility] Number: Effective Repository Date:2018-03-30 03/23/2018 ROSE A [id number] Primary ROSE A [place] Insurance:OB LOWERSDOB: [facility] [id number] Hospital [address]Sle: ([phone]) ADMINPolicy Number: Repository [phone] () [id number] Date: [place], [place] [address]SB: 03/23/2018 Secondary NOT GIVENUNK [place] Insurance:SELF PAY [facility] Number: Effective Repository Date:2018-03-23 03/16/2018 ROSE A [id number] Primary ROSE A [place] Insurance:OB LOWERSDOB: [facility] [id number] Hospital [address]Iav: (514) ADMINPolicy Number: Repository [phone] () [id number] Date: [place], [place] [address]YM: 03/16/2018 Secondary NOT GIVENUNK [place] Insurance:SELF PAY [facility] Number: Effective Repository Date:2018-03-16 03/09/2018 ROSE Jaclyn [id number] Primary ROSE A [place] Insurance:OB LOWERSDOB: [facility] [id number] Hospital [address]Abk: (330) ADMINPolicy Number: Repository [phone] () [id number] Date: [place], [place] [address]GJ: 03/09/2018 Secondary NOT GIVENUNK [place] Insurance:SELF PAY [facility] Number: Effective Repository Date:2018-03-09 02/28/2018 ROSE A [id number] Primary ROSE A Jany N [facility] Insurance:OB LOWERSDOB: [facility] [id number] Hospital [address]Jxz: (416) ADMINPolicy Number: Repository [phone] () [id number] Date: [place], [place] [address]QH: 02/28/2018 Secondary NOT GIVENUNK [place] Insurance:SELF PAY [facility] Number: Effective Repository Date:2018-02-28 02/25/2018 ROSE A [id number] Primary ROSE A [place] N [facility] Insurance:OB LOWERSDOB: [facility] [id number] Hospital [address]Glt: (605) ADMINPolicy Number: Repository [phone] () [id number] Date: [place], [place] [address]ZG: 02/25/2018 Secondary NOT GIVENUNK [place] Insurance:SELF PAY [facility] Number: Effective Repository Date:2018-02-25
== END ==
LOC: POLAB3 11:30
PROVIDERS: Visit Provider Family Medicine Geriatric Medicine
DX: E11.9 Type 2 diabetes mellitus without complications (principal); I10 Essential (primary) hypertension
CPT/HCPCS: 36415; 80053; 84443; 85025

== ENCOUNTER 2018-10-24 11:56 | Emergency (ER) | payer BC, SELFPAY ==
[2018-10-24 11:58] VITALS: BP 109/74; PULSE 89; RESP 16; TEMP 36.7; O2SAT 98; BMI 25.2
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
[2018-10-24] MEDS: HYDROcodone Bitartrate/Apap 5/325 Tablet PO (12:28)
--- NOTE | 2018-10-24 13:44 | CM.ED ---
Social Work Consult: No PCP Informant: Self-Referral Met with patient in room. Patient lives with spouse in a private home. This health social work professor broaching topic of no PCP. Patient confirming to have no PCP and stating it is something I need to do. This health social work professor educating patient on importance and reasons of having a PCP. Patient voicing understanding and agreeing with this health social work professor. This health social work professor providing patient with list of PCP in the area. Patient thanking this health social work professor. Dg TO, MELISSA
--- NOTE | 2018-10-24 13:55 | CT_ITS ---
STUDY: CT ORBITS WITHOUT CONTRAST REASON FOR EXAM: Male, 63 years old. History of metal in the right orbital region. RADIATION DOSAGE (If Supplied By Facility): CTDIvol = ( 33.45 ) mGy, DLP = ( 303.00 ) mGycm TECHNIQUE: The patient was scanned in a multi detector CT scanner. Transaxial imaging was performed without the administration of intravenous contrast material. Sagittal and coronal images were reconstructed. Individualized dose optimization techniques were used for this CT. COMPARISON: Comparison is made with prior CT scan of the brain dated September 19, 2014. FINDINGS: Normal globes. Normal intraconal spaces. Normal optic nerve sheath complex. Normal bilateral extraocular muscles. Normal lacrimal glands. Normal bilateral medial and inferior orbital brooke. Normal bilateral maxillary bones. Normal bilateral frontozygomatic arches. Normal bilateral zygomatic temporal arches. Normal frontal sinus. Normal ethmoidal sinuses. Normal maxillary sinuses. Normal sphenoid sinuses. Normal soft tissue structures. CT/Orb Sella Post Fossa Ear w/o IMPRESSION: No radiopaque foreign body is seen at this time. Electronically Signed: Leo Staples, at 14:30 EDT , Service support ,
[2018-10-24 14:06] VITALS: RESP 16
--- NOTE | 2018-10-24 15:55 | ED.RN ---
report called to rena serrano
[2018-10-24 16:00] VITALS: BP 135/85; PULSE 83; RESP 14; O2SAT 97
[2018-10-24] MEDS: 0.9% Normal Saline 1,000 ML 100 ML IV (16:10)
[2018-10-24] MEDS: HYDROmorphone 0.5 MG/0.5 ML SYRINGE IV (16:13)
[2018-10-24 16:46] VITALS: BP 157/88; PULSE 64; RESP 18; O2SAT 95
--- NOTE | 2018-10-24 17:29 | CASEMGMT ---
According to [employer] [facility] [employer] Basic, In Network hospitals are Kranthi BETH, ABEBA. Jaime Hernandez RNCM
--- NOTE | 2018-10-24 19:48 | NURSING ---
OPENED CHART TO GET REPORT FOR [facility]
== END 2018-10-24 17:40 | disposition short-term general hospital (02) ==
LOC: ED 12:28
PROVIDERS: Emergency Provider Emergency Medicine
DX: S12.500A Unspecified displaced fracture of sixth cervical vertebra, initial encounter for closed fracture (principal); V29.9XXA Motorcycle rider (driver) (passenger) injured in unspecified traffic accident, initial encounter; Y93.9 Activity, unspecified; Y92.9 Unspecified place or not applicable
CPT/HCPCS: 70480; 72141; 96361; 96374; 99285